=== PATIENT | female | born 1955 | race Caucasian/White ===

== ENCOUNTER 2016-07-02 10:32 | Day surgery (SDC) | payer BC ==
[~2016-07-02] VITALS: Ht 157.5 cm; Wt 94.2 kg
[2016-07-02] VITALS (16 sets, daily range): BP systolic 188–236; BP diastolic 88–109; PULSE 54; RESP 16; TEMP 98; O2SAT 95; Ht 157.5 cm; Wt 94.2 kg
[~2016-07-02 10:32] MED LIST: BUME2TAB18 PO; ERTAPENEM 1 G in NORMAL SALINE 100 ML IV ONE; EZET10TA PO; LEVO75TA10 PO; LIDOCAINE 1% (10mg/ml) 2ml SDV INJ ONE; MELO-273 PO; METF500T4 PO; NEBI20TA2 PO; POTA10CA37 PO; VERA120C2 PO
--- OUTSIDE RECORDS SUMMARY | 2016-07-02 10:37 | XMS REPORT ---
Author Author GENERATED, SYSTEM Organization Unknown Address Unknown Phone Unavailable Care Team Providers Care Physical Optics Teacher Name Role Phone MD ELGIN, LAURA RUIZ Unavailable Reason For Visit Chief Complaint PUNCTURE WOUND,OF FOOT Social History Functional Status Vital Signs Results Problems Encounter Diagnosis No relevant problems exist. Encounters Encounter Diagnosis No relevant problems exist. Plan of Care Procedures No relevant procedures performed. Immunizations No immunizations administered or ordered. Hospital Course Hospital Discharge Instructions Allergies, Adverse Reactions, Alerts * Latex Allergy has not been assessed. * IV Contrast Allergy has not been assessed. Medication Medication reconciliation has not been performed.
--- OUTSIDE RECORDS SUMMARY | 2016-07-02 10:37 | XMS REPORT | Summary of Care ---
Author Author Patrick Escobedo M.D. Unknown Address Unknown Phone Unavailable Care Team Providers Care Oil Well Engineer Name Role Phone Fanny Harrison, Mariangel Unavailable Unavailable Finn Harrison, Vaishnavi Unavailable Unavailable Elma Martin M.D. Unavailable Unavailable Elma Martin Unavailable Unavailable Unavailable Unavailable Functional Status Name Dates Details Functional status health issues are not documented Status: Name Dates Details Cognitive status health issues are not documented Status: Problems Name Dates Details Encounter for general health examination (V70.0, Z00.00) Status: Active Myopia (367.1, H52.10) Status: Active Presbyopia (367.4, H52.4) Status: Active Umbilical hernia (553.1, K42.9) Status: Active Polyarthritis (716.50, M13.0) Status: Active Wrist pain (719.43, M25.539) Status: Active Benign essential hypertension (401.1, I10) Status: Active Hypothyroidism (244.9, E03.9) Status: Active Hodgkin lymphoma (201.90, C81.90) Status: Active 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 * Start 06-Dec-2007 Active Bumetanide 2 MG Oral Tablet TAKE ONE TABLET BY MOUTH ONCE A DAY * Quantity: 30 Refills: 5 Elma Martin M.D. * Start Active Slow-Mag 535 (64 Mg) MG TBCR 1 po BID * Quantity: 180 Refills: 3 Finn HarrisonCirilo * Start Active Spironolactone 50 MG Oral Tablet TAKE 1 TABLET BY MOUTH DAILY * Quantity: 30 Refills: 6 Elma Martin M.D. * Start 02-Apr-2010 Active Bystolic 10 MG Oral Tablet TAKE TWO TABLETS BY MOUTH TWICE A DAY * Quantity: 120 Refills: 4 Elma Martin M.D. * Start 08-Apr-2010 Active Potassium Chloride ER 10 MEQ Oral Capsule Extended Release TAKE TWO CAPSULES BY MOUTH THREE TIMES A DAY * Quantity: 120 Refills: 6 Elma Martin M.D. * Start 19-Oct-2011 Active Zetia 10 MG Oral Tablet Take one tablet by mouth daily * Quantity: 30 Refills: 5 Elma Martin M.D. * Start 15-Jul-2012 Active Verapamil HCl ER 120 MG Oral Capsule Extended Release 24 Hour TAKE ONE CAPSULE BY MOUTH EVERY MORNING * Quantity: 30 Refills: 5 Elma Martin M.D. * Start 30-May-2013 Active Meloxicam 7.5 MG Oral Tablet TAKE 1 TABLET DAILY WITH FOOD. * Quantity: 30 Refills: 6 Elma Martin M.D. 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 Combined form of senile cataract of right eye (366.19, H25.811) Status: Active Hodgkin lymphoma (201.90, C81.90) Status: Active Hypothyroidism (244.9, E03.9) Status: Active Lateral epicondylitis of left elbow (726.32, M77.12) Status: Active Lymphedema (457.1, I89.0) Status: Active History of Acute upper respiratory infection (465.9, J06.9) Status: Resolved History of gastroenteritis (V12.79, Z87.19) Status: Resolved History of hypokalemia (V12.29, Z86.39) Status: Resolved Procedures Procedure Dates Details XRay WRIST-Left Ordered: 03-Dec-2015 Immunization Name Dates Details Influenza Lot #: [id number] on: 25-Jan-2009 Influenza on: 20-Mar-2010 Influenza on: 02-Feb-2011 Prevnar 13 Intramuscular Suspension Lot #: [id number] on: 30-Jan-2014 Influenza Lot #: [id number] on: 13-Feb-2014 Family History Name Dates Details Family history of Diabetes Mellitus (V18.0) Comments: Family History Status: Active Name Dates Details Family history of Stroke Syndrome (V17.1) Status: Active Name Dates Details Family history of Acute Myocardial Infarction (V17.3) Status: Active Social History Name Dates Details - Status: Name Dates Details Never smoker Vital Signs Date Test Result Details 03-Dec-2015 17:50 BP Systolic 130 mm[Hg] Status: Comments: Location: ; Position: BP Diastolic 80 mm[Hg] Status: Comments: Location: ; Position: Temperature 98.1 f Status: Comments: Method: Heart Rate 57 /min Status: Comments: Location: ; Physical Findings 99 Status: Comments: O2 Saturation Results Date Description Value Details Results not documented Plan of Care Name Dates Details Planned Observations Planned Goals not documented Interventions Provided Labs/Procedures/Imaging* XRay WRIST-Left; To be Done: 03 Dec 2015 Instructions Name Dates Details Instructions not documented Encounters Appointment; Elma Martin M.D. Encounter Diagnosis: Problem not documented On 03-Jun-2015 15:45 Appointment; John Coulter M.D. Encounter Diagnosis: Problem not documented On 22-Oct-2014 13:45 Appointment; Elma Martin M.D. Encounter Diagnosis: Problem not documented On 27-Feb-2014 15:00 Appointment; Elma Martin M.D. Encounter Diagnosis: Problem not documented On 13-Feb-2014 09:00 Appointment; Elma Martin M.D. Encounter Diagnosis: Problem not documented On 30-Jan-2014 12:15
--- OUTSIDE RECORDS SUMMARY | 2016-07-02 10:37 | XMS REPORT ---
Author Author GENERATED, SYSTEM Organization Unknown Address Unknown Phone Unavailable Care Team Providers Care Bead Machine Operator Name Role Phone MD ELGIN, LAURA RUIZ [...]
--- OUTSIDE RECORDS SUMMARY | 2016-07-02 10:37 | XMS REPORT | Summary of Care ---
Author Author Veronica Harrison, Elam Organization Unknown Address Unknown Phone Unavailable Care Team Providers Care Applications Tester Name Role Phone Finn Harrison, Vaishnavi Unavailable Unavailable Veronica Harrison, Elma Unavailable Unavailable Elma Martin PP Unavailable Unavailable Unavailable Functional Status Functional Status Health Issues* Name Dates Details Functional status health issues are not documented Status: Cognitive Status Health Issues* Name Dates Details Cognitive status health issues are not documented Status: Problems Name Dates Details Encounter for general health examination (V70.0, Z00.00) Status: Active Myopia (367.1, H52.10) Status: Active Presbyopia (367.4, H52.4) Status: Active Umbilical hernia (553.1, K42.9) Status: Active Hodgkin lymphoma (201.90, C81.90) Status: Active Combined form of senile cataract of right eye (366.19, H25.811) Status: Active 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, 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 Lymphedema (457.1, I89.0) Status: Active Benign essential hypertension (401.1, I10) Status: Active Hypothyroidism (244.9, E03.9) Status: Active Lateral epicondylitis of left elbow (726.32, M77.12) Status: Active Polyarthritis (716.50, M13.0) Status: Active Medications Name Dates Details Levothyroxine Sodium 75 MCG Oral Tablet Take one tablet by mouth daily Quantity: 30 Elma Martin M.D.* Started 06-Dec-2007 ActiveBumetanide 2 MG Oral Tablet TAKE ONE TABLET BY MOUTH ONCE A DAY * Quantity: 30 Refills: 5 Elma Martin M.D.* Started ActiveSlow-Mag 535 (64 Mg) MG TBCR 1 po BID * Quantity: 180 Refills: 3 Cirilo Briseno M.D.* Started ActiveSpironolactone 50 MG Oral Tablet TAKE 1 TABLET BY MOUTH DAILY * Quantity: 30 Refills: 6 Elma Martin M.D.* Started 02-Apr-2010 ActiveBystolic 10 MG Oral Tablet TAKE TWO TABLETS BY MOUTH TWICE A DAY * Quantity: 120 Refills: 4 Elma Mratin M.D.* Started 08-Apr-2010 ActivePotassium Chloride ER 10 MEQ Oral Capsule Extended Release TAKE TWO CAPSULES BY MOUTH THREE TIMES A DAY * Quantity: 120 Refills: 6 Elma Martin M.D.* Started 19-Oct-2011 ActiveZetia 10 MG Oral Tablet Take one tablet by mouth daily * Quantity: 30 Refills: 5 Elma Martin M.D.* Started 15-Jul-2012 ActiveVerapamil HCl ER 120 MG Oral Capsule Extended Release 24 Hour TAKE ONE CAPSULE BY MOUTH EVERY MORNING * Quantity: 30 Refills: 5 Elma Martin M.D.* Started 30-May-2013 Active Allergies and Adverse Reactions Name Dates Details DARINEL Inhibitors Reaction: Cough Status: Active HydrALAZINE HCl TABS Status: Active Sulfa Drugs Status: Active Past Medical History Name Dates Details History of Acute upper respiratory infection (465.9, J06.9) Status: Resolved History of gastroenteritis (V12.79, Z87.19) Status: Resolved History of hypokalemia (V12.29, Z86.39) Status: Resolved Procedures Procedure Dates Details Procedures not documented Immunization Name Dates Details Influenza Lot #: [id number] Administered on:25-Jan-2009 Influenza Administered on:20-Mar-2010 Influenza Administered on:02-Feb-2011 Prevnar 13 Intramuscular Suspension Lot #: [id number] Administered on:30-Jan-2014 Influenza Lot #: [id number] Administered on:13-Feb-2014 Family History Unknown Family Member* Name Dates Details Family history of Diabetes Mellitus (V18.0) Comments: Family History Status: Active Mother* Name Dates Details Family history of Stroke Syndrome (V17.1) Status: Active Father* Name Dates Details Family history of Acute Myocardial Infarction (V17.3) Status: Active Social History Name Dates Details Smoking Status* Never smoker Vital Signs Date Test Result Details 03-Jun-2015 16:25 BP Systolic 142 mm[Hg] Status: BP Diastolic 82 mm[Hg] Status: Heart Rate 62 /min Status: Respiration Rate 20 /min Status: Height 64 in Status: Weight 203.375 lb Status: O2 SAT 97 % Status: Body Mass Index Calculated 34.91 kg/m2 Status: Body Surface Area Calculated 1.97 m2 Status: Results Date Description Value Details Results not documented Plan of Care Planned Observations* Name Dates Details Planned Goals not documented Goal Instructions * Instructions not documented Encounters Appointment; Elma Martin Encounter Diagnosis: Problem not documented On 03-Jun-2015 15:45 Appointment; John Coulter Encounter Diagnosis: Problem not documented On 22-Oct-2014 13:45 Appointment; Elma Martin Encounter Diagnosis: Problem not documented On 27-Feb-2014 15:00 Appointment; Elma Martin Encounter Diagnosis: Problem not documented On 13-Feb-2014 09:00 Appointment; Elma Martin Encounter Diagnosis: Problem not documented On 30-Jan-2014 12:15 Appointment; Elma Martin Encounter Diagnosis: Problem not documented On 27-Oct-2013 15:15 Appointment; Elma Martin Encounter Diagnosis: Problem not documented On 01-Aug-2013 10:30
--- OUTSIDE RECORDS SUMMARY | 2016-07-02 10:37 | XMS REPORT ---
Author Author GENERATED, SYSTEM Organization Unknown Address Unknown Phone Unavailable Care Team Providers Care Poacher Wringer Operator Name Role Phone MD ELGIN, LAURA [...]
--- OUTSIDE RECORDS SUMMARY | 2016-07-02 10:37 | XMS REPORT | Summary of Care ---
Author Author Doug Harrison, Cirilo Organization Unknown Address Unknown Phone Unavailable Care Team Providers Care Wreath Inspector Name Role Phone Finn Harrisno, Vaishnavi Unavailable Unavailable Elma Martin M.D. Unavailable Unavailable Cirilo Camacho M.D. 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 Combined form of senile cataract of right eye (366.19, H25.811) Status: Active Lymphedema (457.1, I89.0) Status: Active Lateral epicondylitis of left elbow (726.32, M77.12) Status: Active Left wrist sprain (842.00, S63.502A) Status: Active Flu vaccine need (V04.81, Z23) Status: Active Never a smoker Status: Active Hypothyroidism (244.9, E03.9) Status: Active Screening mammogram, encounter for (V76.12, Z12.31) Status: Active Osteoporosis screening (V82.81, Z13.820) Status: Active Hypercholesterolemia (272.0, E78.00) Status: Active Cholelithiasis (574.20, K80.20) Status: Active Hypertension (401.9, I10) Status: Active Type 2 diabetes mellitus without complication (250.00, E11.9) Status: Active Medications Name Dates Details Levothyroxine Sodium 75 MCG Oral Tablet Take one tablet by mouth daily Quantity: 30 Cirilo Camacho M.D. Start 06-Dec-2007 Active Bumetanide 2 MG Oral Tablet TAKE ONE TABLET BY MOUTH ONCE A DAY * Quantity: 30 Refills: 5 Elma Martin M.D. * Start Active Slow-Mag 535 (64 Mg) MG TBCR 1 po BID * Quantity: 180 Refills: 3 Cirilo Briseno M.D. * Start Active Spironolactone 50 MG Oral Tablet TAKE 1 TABLET BY MOUTH DAILY * Quantity: 30 Refills: 6 Elma Martin M.D. * Start 02-Apr-2010 Active Bystolic 20 MG Oral Tablet Take one tablet by mouth twice a day * Quantity: 60 Refills: 5 Elma Martin M.D. * Start 27-Dec-2015 Active Potassium Chloride ER 10 MEQ Oral Capsule Extended Release TAKE TWO CAPSULES BY MOUTH THREE TIMES A DAY * Quantity: 120 Refills: 3 lEma Martin M.D. * Start 19-Oct-2011 Active Verapamil HCl ER 120 MG Oral Capsule Extended Release 24 Hour TAKE ONE CAPSULE BY MOUTH EVERY MORNING * Quantity: 30 Refills: 4 Cirilo Camacho M.D. Start 30-May-2013 Active Meloxicam 7.5 MG Oral Tablet TAKE 1 TABLET DAILY WITH FOOD. * Quantity: 30 Refills: 6 Elma Martin M.D. * Start 03-Jun-2015 Active Rosuvastatin Calcium 20 MG Oral Tablet TAKE 1 TABLET DAILY. * Quantity: 90 Refills: 3 Cirilo Camacho M.D. * Start 12-Jun-2016 Active MetFORMIN HCl - 500 MG Oral Tablet TAKE 1 TABLET TWICE DAILY WITH MEALS. * Quantity: 180 Refills: 3 Cirilo Camacho M.D. Start 12-Jun-2016 Active Allergies and Adverse Reactions Name Dates Details DARINEL Inhibitors (Allergy) Reaction: Cough Status: Active HydrALAZINE HCl TABS (Allergy) Status: Active Sulfa Drugs (Allergy) Status: Active Past Medical History Name Dates Details Combined form of senile cataract of left [...] gastroenteritis (V12.79, Z87.19) Status: Resolved History of Hodgkin's lymphoma (V10.72, Z85.71) Status: Resolved History of hypokalemia (V12.29, Z86.39) Status: Resolved Procedures Procedure Dates Details History of Appendectomy History of Laparotomy For Restaging Malignancy THYROID STIM. HORMONE 3602 Ordered: 12-Jun-2016 MAMMOGRAM-SCREENING Ordered: 10-Jun-2016 DEXA Ordered: 10-Jun-2016 Immunization Name Dates Details Influenza Lot #: [id number] on: 25-Jan-2009 Influenza on: 20-Mar-2010 Influenza on: 02-Feb-2011 Prevnar 13 Intramuscular Suspension Lot #: [id number] on: 30-Jan-2014 Influenza Lot #: [id number] on: 13-Feb-2014 Fluzone Quadrivalent 0.5 ML Intramuscular Suspension Lot #: [id number] on: 05-Dec-2015 Pneumovax 23 25 MCG/0.5ML Injection Injectable Lot #: [id number] on: 10-Jun-2016 Adacel 5-2-15.5 LF-MCG/0.5 Intramuscular Suspension Lot #: [id number] on: 10-Jun-2016 Family History Name Dates Details Family history of Diabetes Mellitus (V18.0) Comments: Family History Status: Active Name Dates Details Family history of Stroke Syndrome (V17.1) Status: Active Name Dates Details Family history of Acute Myocardial Infarction (V17.3) Status: Active Social History Name Dates Details - Status: Name Dates Details Never smoker Vital Signs Date Test Result Details 12-Jun-2016 13:11 BP Systolic 134 mm[Hg] Status: Comments: Location: ; Position: BP Diastolic 84 mm[Hg] Status: Comments: Location: ; Position: Heart Rate 67 /min Status: Comments: Location: ; Physical Findings 96 Status: Comments: O2 Saturation 10-Jun-2016 10:30 BP Systolic 144 mm[Hg] Status: Comments: Location: ; Position: BP Diastolic 92 mm[Hg] Status: Comments: Location: ; Position: Heart Rate 63 /min Status: Comments: Location: ; Height 63 in Status: Weight 209 lb Status: Physical Findings 98 Status: Comments: O2 Saturation Body Mass Index Calculated 37.02 kg/m2 Status: Body Surface Area Calculated 1.97 m2 Status: Results Date Description Value Details 10-Jun-2016 12:34 CBC w/ Auto Diff 7150 Comments: Fastin hours WBC 10.2 K/uL Range: 4.5-11.0 RBC 5.35 mil/uL (Above high threshold) Range: 3.60-5.00 HGB 15.8 g/dL Range: 12.0-16.0 HCT 47.5 % Range: 36.0-48.0 MCV 88.8 fL Range: 80.0-99.0 MCH 29.5 pg Range: 27.3-32.5 MCHC 33.2 % Range: 32.0-36.0 RDW 15.2 % (Above high threshold) Range: 11.6-14.8 PLATELETS 417 K/uL (Above high threshold) Range: 150-400 MPV 7.9 fL Range: 6.0-11.0 %NEUTRO 64.1 % Range: 37.0-80.0 %LYMPHS 25.4 % Range: 13.0-50.0 %MONO 4.8 % Range: 0.0-12.0 %EOS 3.4 % Range: 0.0-7.0 %BASO 0.5 % Range: 0.0-2.5 %ELYSSA 1.9 % Range: 0.0-5.0 NEUTRO 6.6 K/uL Range: 2.0-6.9 LYMPHS 2.6 K/uL Range: 0.6-3.4 MONOS 0.5 K/uL Range: 0.0-0.9 EOS 0.3 K/uL Range: 0.0-0.7 BASO 0.1 K/uL Range: 0.0-0.2 15:00 BASIC METABOLIC PROFILE 1210 Comments: Fastin hours SODIUM 134 mmol/L Range: 133-144 POTASSIUM 3.6 mmol/L Range: 3.5-5.1 CHLORIDE 101 mmol/L Range: 98-110 CARBON DIOXIDE 25.7 mmol/L Range: 23.0-33.0 ANION GAP 7 mmol/L Range: 6-16 BUN 14 mg/dL Range: 7-18 CREATININE, SERUM 0.83 mg/dL Range: 0.55-1.02 EST GFR, >60 ml/min Range: >60 EST GFR, NON-AFR DJIBOUTIAN >60 ml/min Range: >60 Comments: EST GFR is reported in ml/min per 1.73 m2 of body surface area. ----- BUN:CREATININE RATIO 17 GLUCOSE 167 mg/dL (Above high threshold) Range: 70-100 CALCIUM 8.5 mg/dL Range: 8.5-10.1 15:00 LIPID PROFILE 1184 Comments: Fastin hours CHOLESTEROL 244 mg/dL (Above high threshold) Range: <200 TRIGLYCERIDES 107 mg/dL Range: 30-200 HDL Cholesterol 43 mg/dL Range: >39 NON HDL CHOLESTEROL 201 CARDIAC RSK FACTOR 5.7 units (Above high threshold) Range: 4.4-5.0 LDL - CALCULATED 180 mg/dL (Above high threshold) Range: 0-130 15:00 AST 1180 Comments: Fastin hours AST 20 U/L Range: 8-35 15:38 HEMOGLOBIN A1C 3507 Comments: Fastin hours Hemoglobin A1C 8.2 % ESTIMATED AVG. GLUCOSE 189 11-Jun-2016 09:50 ULTRASOUND GALL BLADDER Comments: Exam Date: 06/11/2016 08: 54Dictation Date: 06/11/2016 09:50 XS GALL BLADDER Plan of Care Name Dates Details Planned Observations Planned Goals not documented Planned Encounters Appointment; Provider: Cirilo Camacho M.D. On 13:00 Appointment; Provider: Schedule Radiology On 14:30 Appointment; Provider: Schedule Radiology On 14:20 Interventions Provided Medication Changes* MetFORMIN HCl - 500 MG Oral Tablet - Start * Rosuvastatin Calcium 20 MG Oral Tablet - Start * Zetia 10 MG Oral Tablet - Stop Labs/Procedures/Imaging* THYROID STIM. HORMONE 3602; To be Done: 12 Jun 2016 Instructions Name Dates Details Instructions not documented Encounters Appointment; Cirilo Camacho M.D. Encounter Diagnosis: Problem not documented On 10-Jun-2016 10:45 Appointment; Precious Villanueva Encounter Diagnosis: Problem not documented On 05-Dec-2015 12:45 Appointment; Patrick Escobedo M.D. Encounter Diagnosis: Problem not documented On 03-Dec-2015 17:34 Appointment; Elma Martin M.D. Encounter Diagnosis: Problem not documented On 03-Jun-2015 15:45 Appointment; John Coulter M.D. Encounter Diagnosis: Problem not documented On 22-Oct-2014 13:45
--- OUTSIDE RECORDS SUMMARY | 2016-07-02 10:38 | XMS REPORT | Summary of Care ---
Author Author Veronica Harrison, Elma Organization Unknown Address Unknown Phone Unavailable Care Team Providers Care At Risk Paraprofessional Name Role Phone Finn Harrison, Vaishnavi Unavailable Unavailable Elma Martin M.D. Unavailable Unavailable Elma Martin PP Unavailable Unavailable Unavailable Functional Status Functional Status Health Issues* Name Dates Details Functional status health issues are not documented Status: Cognitive Status Health Issues* Name Dates Details Cognitive status health issues are not documented Status: Problems Name Dates Details Lower back pain (724.2, M54.5) Status: Active Cough (786.2, R05) Status: Active Hypothyroidism (244.9, E03.9) Status: Active Chest pain (786.50, R07.9) Status: Active Benign essential hypertension (401.1, I10) Status: Active Encounter for general health examination (V70.0, Z00.00) Status: Active Myopia (367.1, H52.10) Status: Active Presbyopia (367.4, H52.4) Status: Active Nonspecific abnormal finding (796.9, R68.89) Status: Active Hyperlipidemia (272.4, E78.5) Status: Active Edema (782.3, R60.9) Status: Active Eye strain, bilateral (368.13, H53.143) Status: Active Bronchitis, acute (466.0, J20.9) Status: Active Wheezing (786.07, R06.2) Status: Active Insomnia, idiopathic (307.42, F51.01) Status: Active Umbilical hernia (553.1, K42.9) Status: Active Left leg swelling (729.81, M79.89) Status: Active Hodgkin lymphoma (201.90, C81.90) Status: Active Cellulitis of foot, left (682.7, L03.116) Status: Active Medications Name Dates Details Bumetanide 2 MG Oral Tablet TAKE 1 TABLET DAILY. Quantity: 30 Elma Martin M.D.* Started ActiveSpironolactone 50 MG Oral Tablet TAKE 1 TABLET BY MOUTH DAILY * Quantity: 30 Refills: 6 Elma Martin M.D.* Started 02-Apr-2010 ActivePotassium Chloride ER 10 MEQ Oral Capsule Extended Release TAKE TWO CAPSULES BY MOUTH THREE TIMES A DAY * Quantity: 120 Refills: 6 Elma Martin M.D.* Started 19-Oct-2011 ActiveZetia 10 MG Oral Tablet TAKE ONE TABLET BY MOUTH ONCE A DAY * Quantity: 30 Refills: 6 Elma Martin M.D.* Started 15-Jul-2012 ActiveVerapamil HCl ER 120 MG Oral Capsule Extended Release 24 Hour TAKE ONE CAPSULE BY MOUTH EVERY MORNING * Quantity: 30 Refills: 2 Elma Martin M.D.* Started 30-May-2013 ActiveSlow-Mag 535 (64 Mg) MG TBCR 1 po BID * Quantity: 180 Refills: 3 Cirilo Briseno M.D.* Started ActiveBystolic 20 MG Oral Tablet Take one tablet by mouth twice a day * Quantity: 60 Refills: 5 Elma Martin M.D.* Started 01-Aug-2010 ActiveFolic Acid 800 MCG Oral Tablet TAKE 1 TABLET DAILY DIRECTED. * Refills: 0 * Started 15-Apr-2010 ActiveLevothyroxine Sodium 75 MCG Oral Tablet take one tablet by mouth every day * Quantity: 90 Refills: 2 Elma Martin M.D.* Started 06-Dec-2007 Active Allergies and Adverse Reactions Name Dates Details DARINEL Inhibitors Reaction: Cough Status: Active HydrALAZINE HCl TABS Status: Active Sulfa Drugs Status: Active Past Medical History Name Dates Details History of Acute upper respiratory infection (465.9, J06.9) Status: Resolved History of gastroenteritis (V12.79, Z87.19) Status: Resolved History of hypokalemia (V12.29, Z86.39) Status: Resolved Procedures Procedure Dates Details Comprehensive Metabolic Panel 1212 Ordered:10-Apr-2014 CBC w/ Auto Diff 7150 Ordered:10-Apr-2014 LIPID PROFILE 1184 Ordered:10-Apr-2014 THYROID STIM. HORMONE 3602 Ordered:10-Apr-2014 Immunization Name Dates Details Influenza Lot #: [id number] Administered on:25-Jan-2009 Influenza Administered on:20-Mar-2010 Influenza Administered on:02-Feb-2011 Prevnar 13 Intramuscular Suspension Lot #: [id number] Administered on:30-Jan-2014 Influenza Lot #: [id number] Administered on:13-Feb-2014 Family History Unknown Family Member* Name Dates Details Family history of Diabetes Mellitus (V18.0) Comments: Family History Status: Active Mother* Name Dates Details Family history of Stroke Syndrome (V17.1) Status: Active Father* Name Dates Details Family history of Acute Myocardial Infarction (V17.3) Status: Active Social History Name Dates Details Smoking Status* Never smoker Vital Signs Date Test Result Details No Known Vitals to report Results Date Description Value Details Results not documented Plan of Care Planned Observations* Name Dates Details Planned Goals not documented Goal Planned Encounters* Appointment; Provider: Elma Martin On 18-Apr-2014 11:15 Instructions * Instructions not documented Encounters Appointment; Elma Martin Encounter Diagnosis: Problem not documented On 27-Feb-2014 15:00 Appointment; Elma Martin Encounter Diagnosis: Problem not documented On 13-Feb-2014 09:00 Appointment; Elma Martin Encounter Diagnosis: Problem not documented On 30-Jan-2014 12:15 Appointment; Elma Martin Encounter Diagnosis: Problem not documented On 27-Oct-2013 15:15 Appointment; Elma Martin Encounter Diagnosis: Problem not documented On 01-Aug-2013 10:30 Appointment; Elma Martin Encounter Diagnosis: Problem not documented On 30-May-2013 16:00 Appointment; Adelfo Ruiz Encounter Diagnosis: Problem not documented On 29-May-2013 13:20 Appointment; Elma Martin Encounter Diagnosis: Problem not documented On 22-May-2013 09:15 Appointment; Elma Martin Encounter Diagnosis: Problem not documented On 21-Feb-2013 15:30 Appointment; Elma Martin Encounter Diagnosis: Problem not documented On 20-Jan-2013 15:15 Appointment; Elma Martin Encounter Diagnosis: Problem not documented On 15-Jul-2012 15:45 Appointment; Preston Cardona Encounter Diagnosis: Problem not documented On 24-May-2012 15:30 Appointment; Preston Cardona Encounter Diagnosis: Problem not documented On 10-May-2012 15:45
--- OUTSIDE RECORDS SUMMARY | 2016-07-02 10:38 | XMS REPORT | Summary of Care ---
Author Author Veronica Harrison, Elma Organization Unknown Address Unknown Phone Unavailable Care Team Providers Care Pegger Dobby Looms Name Role Phone Finn Harrison, Vaishnavi Unavailable [...] L03.116) Status: Active Medications Name Dates Details Levothyroxine Sodium 75 MCG Oral Tablet take one tablet by mouth every day Quantity: 90 Elma Martin M.D.* Started 06-Dec-2007 ActiveBumetanide 2 MG Oral Tablet TAKE 1 TABLET DAILY. * Quantity: 30 Refills: 6 Elma Martin M.D.* Started ActiveSlow-Mag 535 (64 Mg) MG TBCR 1 po BID * Quantity: 180 Refills: 3 Cirilo Briseno M.D.* Started ActiveSpironolactone 50 MG Oral Tablet TAKE 1 TABLET BY MOUTH DAILY * Quantity: 30 Refills: 6 Elma Martin M.D.* Started 02-Apr-2010 ActiveFolic Acid 800 MCG Oral Tablet TAKE 1 TABLET DAILY DIRECTED. * Refills: 0 * Started 15-Apr-2010 ActiveBystolic 20 MG Oral Tablet Take one tablet by mouth twice a day * Quantity: 60 Refills: 5 Elma Martin M.D.* Started 01-Aug-2010 ActivePotassium Chloride ER 10 MEQ Oral Capsule [...] Refills: 2 Elma Martin M.D.* Started 30-May-2013 Active Allergies [...] Immunization Name Dates Details Influenza Lot #: [id number] Administered on:25-Jan-2009 Influenza Administered on:20-Mar-2010 Influenza Administered on:02-Feb-2011 Prevnar 13 Intramuscular Suspension Lot #: [id number] Administered on:30-Jan-2014 Influenza Lot #: [id number] Administered on:13-Feb-2014 Family History Unknown Family Member* Name Dates Details Family history of Diabetes Mellitus (V18.0) Comments: Family History Status: Active Mother* Name Dates Details Family history of Stroke Syndrome (V17.1) Status: Active Father* Name Dates Details Family history of Acute Myocardial Infarction (V17.3) Status: Active Social History Name Dates Details Smoking Status* Never smoker Vital Signs Date Test Result Details 27-Feb-2014 15:29 BP Systolic 122 mm[Hg] Status: BP Diastolic 70 mm[Hg] Status: Heart Rate 64 /min Status: Respiration Rate 20 /min Status: O2 SAT 97 % Status: Results Date Description Value Details 27-Feb-2014 16:54 XRay FOOT-Left Comments: Exam Date: 16: 10Dictation Date: 16:54 X FOOT COMP (MIN 3V) LT (Better) Plan of Care Planned Observations* Name Dates [...] Problem not documented On 15-Jul-2012 15:45 Appointment; Cardona, T. K. Encounter Diagnosis: Problem not documented On 24-May-2012 15:30 Appointment; Preston Cardona Encounter Diagnosis: Problem not documented On 10-May-2012 15:45
--- OUTSIDE RECORDS SUMMARY | 2016-07-02 10:38 | XMS REPORT | Summary of Care ---
Author Author Veronica Harrison, Elma Organization Unknown Address Unknown Phone Unavailable Care Team Providers Care Assistant Plant Control Operator Name Role Phone Finn Harrison, Vaishnavi Unavailable [...] DAILY. Quantity: 30 Elma Martin M.D.* Started ActiveBystolic 10 MG Oral Tablet TAKE TWO TABLETS BY MOUTH TWICE A DAY * Quantity: 120 Refills: 5 Elma Martin M.D.* Started 08-Apr-2010 ActiveBystolic 20 MG Oral Tablet Take one tablet by mouth twice a day * Quantity: 60 Refills: 5 Elma Martin M.D.* Started 01-Aug-2010 ActiveZetia 10 MG Oral Tablet TAKE ONE TABLET BY MOUTH ONCE A DAY * Quantity: 30 Refills: 6 Elma Martin M.D.* Started 15-Jul-2012 ActivePotassium Chloride ER 10 MEQ Oral Capsule Extended Release TAKE TWO CAPSULES BY MOUTH THREE TIMES A DAY * Quantity: 120 Refills: 6 Elma Martin M.D.* Started 19-Oct-2011 ActiveVerapamil HCl ER 120 MG Oral Capsule Extended Release 24 Hour TAKE ONE CAPSULE BY MOUTH EVERY MORNING * Quantity: 30 Refills: 5 Elma Martin M.D.* Started 30-May-2013 ActiveLevothyroxine Sodium 75 MCG Oral Tablet take one tablet by mouth every day * Quantity: 90 Refills: 2 Elma Martin M.D.* Started 06-Dec-2007 ActiveSpironolactone 50 MG Oral Tablet TAKE 1 TABLET BY MOUTH DAILY * Quantity: 30 Refills: 6 Elma Martin M.D.* Started 02-Apr-2010 ActiveFolic Acid 800 MCG Oral Tablet TAKE 1 TABLET DAILY DIRECTED. * Refills: 0 * Started 15-Apr-2010 ActiveSlow-Mag 535 (64 Mg) MG TBCR 1 po BID * Quantity: 180 Refills: 3 Cirilo Briseno M.D.* Started Active Allergies and Adverse Reactions Name Dates [...] Immunization Name Dates Details Influenza Lot #: [id number] Administered on:25-Jan-2009 Influenza Administered on:20-Mar-2010 Influenza Administered on:02-Feb-2011 Prevnar 13 Intramuscular Suspension Lot #: [id number] Administered on:30-Jan-2014 Influenza Lot #: [id number] Administered on:13-Feb-2014 Family History Unknown Family Member* [...]
--- OUTSIDE RECORDS SUMMARY | 2016-07-02 10:38 | XMS REPORT ---
Author Author GENERATED, SYSTEM Organization Unknown Address Unknown Phone Unavailable Care Team Providers Care Molder Floor Name Role Phone MD ELGIN, LAURA RUIZ [...]
--- OUTSIDE RECORDS SUMMARY | 2016-07-02 10:38 | XMS REPORT | Summary of Care ---
Author Author Provider, Outside Organization Unknown Address Unknown Phone Unavailable Care Team Providers Care Patient Escort Name Role Phone Finn Harrison, Vaishnavi Unavailable Unavailable Veronica Harrison, Elma Unavailable Unavailable Cirilo Camacho M.D. Unavailable Unavailable [...] Status: Active Never a smoker Status: Active Hypertension (401.9, I10) Status: Active Hypothyroidism (244.9, E03.9) Status: Active Cholelithiasis (574.20, K80.20) Status: Active Type 2 diabetes mellitus without complication (250.00, E11.9) Status: Active Screening mammogram, encounter for (V76.12, Z12.31) Status: Active Osteoporosis screening (V82.81, Z13.820) Status: Active Medications Name Dates Details Levothyroxine Sodium 75 MCG Oral Tablet Take one tablet by mouth daily Quantity: 30 Cirilo Camacho M.D. * Start 06-Dec-2007 Active Bumetanide 2 [...] A DAY * Quantity: 120 Refills: 3 Elma Martin M.D. * Start 19-Oct-2011 Active Zetia 10 MG Oral Tablet Take one tablet by mouth daily * Quantity: 30 Refills: 3 Elma Martin M.D. * Start 15-Jul-2012 Active Verapamil HCl ER 120 MG Oral Capsule Extended Release 24 Hour TAKE ONE CAPSULE BY MOUTH EVERY MORNING * Quantity: 30 Refills: 4 Cirilo Camacho M.D. * Start 30-May-2013 Active Meloxicam 7.5 [...] Appendectomy History of Laparotomy For Restaging Malignancy BASIC METABOLIC PROFILE 1210 Ordered: 10-Jun-2016 CBC w/ Auto Diff 7150 Ordered: 10-Jun-2016 LIPID PROFILE 1184 Ordered: 10-Jun-2016 AST 1180 Ordered: 10-Jun-2016 HEMOGLOBIN A1C 3507 Ordered: 10-Jun-2016 MAMMOGRAM-SCREENING Ordered: 10-Jun-2016 DEXA Ordered: 10-Jun-2016 ULTRASOUND GALL BLADDER Ordered: 10-Jun-2016 Immunization Name Dates Details Influenza Lot #: [id number] on: 25-Jan-2009 Influenza on: 20-Mar-2010 Influenza on: 02-Feb-2011 Prevnar 13 Intramuscular Suspension Lot #: [id number] on: 30-Jan-2014 Influenza Lot #: [id number] on: 13-Feb-2014 Fluzone Quadrivalent 0.5 ML Intramuscular Suspension Lot #: [id number] on: 05-Dec-2015 Pneumovax 23 25 MCG/0.5ML Injection Injectable Lot #: [id number] on: 10-Jun-2016 Adacel 5-2-15.5 LF-MCG/0.5 Intramuscular Suspension Lot #: [id number] on: 10-Jun-2016 Family History Name Dates Details Family history of Diabetes Mellitus (V18.0) Comments: Family History Status: Active Name Dates Details Family history of Stroke Syndrome (V17.1) Status: Active Name Dates Details Family history of Acute Myocardial Infarction (V17.3) Status: Active Social History Name Dates Details - Status: Name Dates Details Never smoker Vital Signs Date Test Result Details 10-Jun-2016 10:30 BP Systolic 144 mm[Hg] Status: [...] Details Planned Observations Planned Goals not documented Instructions Name Dates Details Instructions not documented [...]
--- OUTSIDE RECORDS SUMMARY | 2016-07-02 10:38 | XMS REPORT | Summary of Care ---
Author Author Veronica Harrison, Elma Organization Unknown Address Unknown Phone Unavailable Care Team Providers Care Airdrop Systems Technician Name Role Phone Finn Harrison, Vaishnavi Unavailable [...] Immunization Name Dates Details Influenza Lot #: [id number] Administered on:25-Jan-2009 Influenza Administered on:20-Mar-2010 Influenza Administered on:02-Feb-2011 Prevnar 13 Intramuscular Suspension Lot #: [id number] Administered on:30-Jan-2014 Influenza Lot #: [id number] Administered on:13-Feb-2014 Family History Unknown Family Member* [...]
--- OUTSIDE RECORDS SUMMARY | 2016-07-02 10:38 | XMS REPORT | Summary of Care ---
Author Author Doug Harrison, Cirilo Organization Unknown Address Unknown Phone Unavailable Care Team Providers Care Fish Egg Packer Name Role Phone Finn Harrison, Vaishnavi Unavailable [...] lEma Martin M.D. * Start 19-Oct-2011 Active Zetia [...] Malignancy BASIC METABOLIC PROFILE 1210 Ordered: 10-Jun-2016 LIPID PROFILE 1184 Ordered: 10-Jun-2016 AST 1180 Ordered: 10-Jun-2016 HEMOGLOBIN A1C 3507 Ordered: 10-Jun-2016 MAMMOGRAM-SCREENING Ordered: 10-Jun-2016 DEXA Ordered: 10-Jun-2016 ULTRASOUND GALL BLADDER Ordered: 10-Jun-2016 Immunization Name Dates Details Influenza Lot #: [id number] on: 25-Jan-2009 Influenza on: 20-Mar-2010 Influenza on: 02-Feb-2011 Prevnar 13 Intramuscular Suspension Lot #: [id number] on: 30-Jan-2014 Influenza Lot #: [id number] on: 13-Feb-2014 Fluzone Quadrivalent 0.5 ML Intramuscular Suspension Lot #: [id number] on: 05-Dec-2015 Pneumovax 23 25 MCG/0.5ML Injection Injectable Lot #: [id number] on: 10-Jun-2016 Adacel 5-2-15.5 LF-MCG/0.5 Intramuscular Suspension Lot #: [id number] on: 10-Jun-2016 Family History Name Dates Details [...] Range: 0.0-0.7 BASO 0.1 K/uL Range: 0.0-0.2 Plan of Care Name Dates Details Planned Observations MAMMOGRAM-SCREENING On 24-Jun-2016 Intent DEXA On 24-Jun-2016 Intent Planned Goals not documented Interventions Provided Medication Changes* Levothyroxine Sodium 75 MCG Oral Tablet - Renew * Verapamil HCl ER 120 MG Oral Capsule Extended Release 24 Hour - Renew Labs/Procedures/Imaging* AST 1180; To be Done: 10 Jun 2016 * BASIC METABOLIC PROFILE 1210; To be Done: 10 Jun 2016 * HEMOGLOBIN A1C 3507; To be Done: 10 Jun 2016 * LIPID PROFILE 1184; To be Done: 10 Jun 2016 * ULTRASOUND GALL BLADDER; To be Done: 10 Jun 2016 * CBC w/ Auto Diff 7150; Done: Jun 10 2016 12:23PM Medications/Immunizations Administered* Adacel 5-2-15.5 LF-MCG/0.5 Intramuscular Suspension; Done: 10 Jun 2016 * Pneumovax 23 25 MCG/0.5ML Injection Injectable; Done: 10 Jun 2016 Instructions Name Dates Details Instructions not documented Encounters Appointment; Precious Villanueva Encounter Diagnosis: Problem not documented On 05-Dec-2015 12:45 Appointment; Patrick Escobedo M.D. Encounter Diagnosis: Problem not documented On 03-Dec-2015 17:34 Appointment; Elma Martin M.D. Encounter Diagnosis: Problem not documented On 03-Jun-2015 15:45 Appointment; John Coulter M.D. Encounter Diagnosis: Problem not documented On 22-Oct-2014 13:45
[2016-07-02 11:18] LABS: BASOPHILS # (AUTO) 0.1 T/MM3 (0-0.2); BASOPHILS % (AUTO) 0.5 % (0-2); EOSINOPHILS # (AUTO) 0.4 T/MM3 (0-0.5); EOSINOPHILS % (AUTO) 3.9 % (0-4); HCT - HEMATOCRIT 45.7 % (36-46); HGB - HEMOGLOBIN 14.9 GM/DL (12-16); IMMATURE GRANULOCYTE # (AUTO) 0.02 T/MM3 (0.00-0.03); IMMATURE GRANULOCYTE % (AUTO) 0.2 % (0.0-0.5); LYMPHOCYTES # (AUTO) 3.8 T/MM3 (1-4.8); LYMPHOCYTES % (AUTO) 35.1 % (23-45); MEAN CORPUSCULAR HGB 27.8 UUG (26-34); MEAN CORPUSCULAR HGB CONC(MCHC 32.6 GM/DL (31-37); MEAN CORPUSCULAR VOLUME 85.3 UM3 (80-100); MEAN PLATELET VOLUME 10.5 UM3 (9.4-12.4); MONOCYTES # (AUTO) 0.9 T/MM3 (0-0.8); MONOCYTES % (AUTO) 8.1 % (0-9.0); NEUTROPHILS #(AUTO)-ABSOLUTE 5.6 T/MM3 (1.8-7.7); NEUTROPHILS % (AUTO) 52.2 % (33-66); RED BLOOD COUNT 5.36 M/MM3 (4.00-5.20); WBC - WHITE BLOOD COUNT 10.7 T/MM3 (4.5-11.0)
[2016-07-02 11:28] LABS: ALBUMIN 4.6 G/DL (3.5-5.0); ALBUMIN/GLOBULIN RATIO 1.2 RATIO (1.1-2.2); ALKALINE PHOSPHATASE 115 U/L (38-126); ALT (SGPT) 33 U/L (9-52); ANION GAP 15 MEQ/L (5-15); AST (SGOT) 28 U/L (14-36); BUN/CREATININE RATIO 29 RATIO (6-26); CHLORIDE 104 MEQ/L (98-107); CO2 - CARBON DIOXIDE 28 MEQ/L (22-30); CREATININE 0.7 MG/DL (0.7-1.2); GLOMERULAR FILTRATION RATE 85; GLUCOSE 153 MG/DL (65-110); POTASSIUM 3.8 MEQ/L (3.6-5); SODIUM 147 MEQ/L (134-144); TOTAL PROTEIN 8.5 G/DL (6.3-8.2)
[2016-07-02] MEDS: LR 1,000 ML IV PRN ×2 (12:03→18:29)
--- NOTE | 2016-07-02 12:15 | NUR ---
Blood Pressure/Notification Pt remains hypertensive. See vitals. Reported to Bolivar Cobos CRNA. No new orders received at this time, except to continue monitoring blood pressure.
--- NOTE | 2016-07-02 12:36 | ANESPREOP ---
Anesthesia Record Date and Time DATE: 07/02/16 TIME: 12:32 Pre-Op Diagnosis [employer] UMB. HERNIA Proposed Surgical Procedure ROBOTIC LAP ANDREY, HERNIA REPAIR Allergies: Coded Allergies: Sulfa (Sulfonamide Antibiotics) (Verified Allergy, Unknown, 07/01/16) hydralazine (Verified Allergy, Unknown, AT. FIB, 07/01/16) Uncoded Allergies: WHEAT FLOUR (Allergy, Unknown, COUGHING, 07/01/16) Ht/Wt/BMI Height: 5 ' 2.00 " Weight: 94.200 kg BMI: 38.0 kg/m2 Vital Signs Date Time Temp Pulse Resp B/P Pulse Ox O2 Delivery O2 Flow Rate FiO2 07/02/16 12:11 225/103 07/02/16 10:45 98.0 54 16 95 Room Air Medications Inpatient Medications Current Medications Medications (Trade) Dose Ordered Sig/Fawad Start Time Stop Time Status Last Admin Dose Admin Lactated Ringer's (Lactated Ringers) 1,000 ml @ 30 mls/hr Q24H PRN 07/02/16 07:00 07/02/16 12:03 30 MLS/HR Bumetanide (Bumetanide) 2 Mg Tablet, 1 TAB PO DAILY PRN for PRN ORDERS, ( Reported) Last Taken: on Unknown Date & Time Ezetimibe (Zetia) 10 Mg Tablet, 1 TAB PO HS, (Reported) Last Taken: on 07/01/16 2200 Levothyroxine Sodium (Levothyroxine Sodium) 75 Mcg Tablet, 1 TAB PO DAILY, (Reported) Last Taken: on 07/02/16 0830 Meloxicam (Meloxicam) 7.5 Mg Tablet, 1 TAB PO DAILY, (Reported) Last Taken: on 06/25/16 Metformin HCl (Metformin HCl) 500 Mg Tablet, 1 TAB PO PRN, (Reported) Last Taken: on 07/01/16 2100 Nebivolol HCl (Bystolic) 20 Mg Tablet, 1 TAB PO BID, (Reported) Last Taken: on 07/02/16 0830 Potassium Chloride (Potassium Chloride) 10 Meq Capsule.er, 2 CAP PO BID, (Reported) Last Taken: on Unknown Date & Time Verapamil HCl (Verapamil ER) 120 Mg Cap24h.pel, 1 TAB PO NOON, (Reported) Last Taken: on 07/01/16 1500 Currently on Beta Carito: Yes Beta Carito Last Taken: bystolic 07/02/16 at 0830 Medical/Surgical History Anesthesia PMH: Reports: *Diabetes, *Hypertension (TAKES MEDS ), Cancer ( HODGKINS LYMPHOMA), Obesity, Thyroid Disease (HYPOTHYROIDISM), Denies: Anesthesia Reactions (NO AIRWAY ISSUES ), Arthritis, Blood Transfusion Reac, Clotting Problems, Glaucoma, Malignant Hyperthermia, Sleep Apnea Smoking Status: Former smoker Has pt. smoked today?: No Use Chewing Tobacco?: No Second Hand Exposure: No Substance Use Type: does not use Substance last used: unknown Alcohol Intake: none Last Drink: unknown HX of Last Menstrual Period: AGE 43 Past Surgical History Orthopedic Surgeries: Abdominal Surgeries: Yes - SPLEEN REMOVED, APPY Genitourinary Surgeries: Cardiac Surgeries: Endocrine Surgeries: Reproductive Surgeries: Neurological Surgeries: Ear Surgeries: Nose Surgeries: Throat Surgeries: Other Surgeries: Yes - BIOPSY-UNDERARM Anesthesia Adverse Reactions: FOUND nausea and vomiting Pertinent Findings Laboratory Tests 07/02/16 11:13 EKG Rhythm: Sinus Rhythm Physical Exam Respiratory: Bilat breath sounds equal, Lungs clear Cardiovascular: FOUND Regular rate, rhythm, FOUND No murmur Airway Assessment Mallampati Score: II TMD: 3 Fingerbreadths Neck Extension: Fair ASA: 3 Plan Anesthesia Plan: GETA Discussion Discussed risks/options/alternatives of anesthesia and questions answered. Patient consents. Nursing pain assessment noted. Present: Spouse Attestation Statement Prior to the delivery of any anesthetic medication, I examined the patient, developed the plan, obtained the patient's consent and discussed the risk and benefits of the procedure with the patient/guardian. MANSI CABRALES CRNA Jul 02, 2016 12:36
--- NOTE | 2016-07-02 12:39 | NUR ---
Blood Pressure Pt remains hypertensive. Bolivar Cobos CRNA here visiting with pt. Direction to remain monitoring pts blood pressure. Order was given for Versed 2mg. Bolivar verbalized to this RN to try to hold off on administration of Versed and monitor blood pressures due to unknown surgery start time.
[2016-07-02] MEDS ORDERED: MIDAZOLAM 2mg/2ml INJECTION IV ONE (12:45)
[2016-07-02] MEDS ORDERED: BUPIVACAINE 0.25%/EPI 1:200,000 30ml SDV ONE (15:02)
[2016-07-02] MEDS ORDERED: SALINE FLUSH 10ml SYRINGE ONE (15:03)
[2016-07-02] MEDS ORDERED: FENTANYL 250mcg/5ml INJECTION ONE (16:01)
[2016-07-02] MEDS ORDERED: PROPOFOL 200mg 20 ML IV ONE (16:02)
[2016-07-02] MEDS ORDERED: VECURONIUM 10mg/10ml INJECTION IV ONE (16:02)
--- NOTE | 2016-07-02 19:10 | NUR ---
Surgery Postponed Dr Mckeon here visiting with pt. Verbal order to lock off pts IV from fluids and send pt home with peripheral IV in place received, along with direction to reschedule today's surgery for tomorrow, July 03, 2016.
--- NOTE | 2016-07-02 19:20 | NUR ---
Procedure Status Surgery rescheduled for tomorrow afternoon at 3:00 p.m. IV locked and secured in place with coban. Pt will be dismissed home. Pt verbalizes understanding of plan of care.
[2016-07-03] MEDS ORDERED: IBUP-1724 PO (14:19)
== END 2016-07-02 20:00 | disposition home or self-care (01) ==
LOC: SCU 10:32 → SRG 10:32 → SCU 20:00
PROVIDERS: ATTEND Surgery
DX: K80.20 Calculus of gallbladder without cholecystitis without obstruction (principal); K43.2 Incisional hernia without obstruction or gangrene
CPT/HCPCS: 36415; 80053; 82948; 85025

== ENCOUNTER 2016-07-03 12:53 | Inpatient (IN) | payer BC ==
[2016-07-03] VITALS (30 sets, daily range): BP systolic 134–228; BP diastolic 80–111; PULSE 54–75; RESP 10–22; TEMP 97.7–98.4; O2SAT 89–98; Ht 157.5 cm; Wt 94.9 kg
[~2016-07-03] VITALS: Ht 157.5 cm; Wt 94.9 kg
[~2016-07-03 12:53] MED LIST changes: -ERTAPENEM 1 G in NORMAL SALINE 100 ML IV ONE; -LIDOCAINE 1% (10mg/ml) 2ml SDV INJ ONE
--- OUTSIDE RECORDS SUMMARY | 2016-07-03 12:58 | XMS REPORT ---
Author Author GENERATED, SYSTEM Organization Unknown Address Unknown Phone Unavailable Care Team Providers Care Medical Technologist Name Role Phone MD ELGIN, LAURA RUIZ [...]
--- OUTSIDE RECORDS SUMMARY | 2016-07-03 12:58 | XMS REPORT | Continuity of Care Document ---
Author Author [facility] Organization [facility] Address Unknown Phone Unavailable Support Name Relationship Address Phone SHEEBA VILLARREAL FACS, MD Caregiver [address] [place] [address] [place] [address] Unavailable NAOMI STEARNS Caregiver [address] [place] [address] Unavailable TJ GARCIA Next Of Kin [address] [place] [address] Insurance Providers Guarantor Keshia Garcia Address [address] [place] [address] Email DENIED 07-02-16 Payer [facility] Policy Number [id number] Subscriber's Name Keshia Garcia Relationship 18 Self Group Number [id number] Advance Directives Directive Response Recorded Date/Time Ordered Resuscitation Status Full Code 07/01/16 1:33pm Resuscitation Documents on File No 07/02/16 11:19am DPOA for Healthcare Only No 07/02/16 11:19am Living Will No 07/02/16 11:19am Problems No problem information available. Medications Current Home Medications Medication Dose Units Route Directions Days Qty Instructions Start Date Bumetanide 2 Mg Tablet 1 Tab Oral Daily as needed for Prn Orders 30 Tablet 07/01/16 Ezetimibe (Zetia) 10 Mg Tablet 1 Tab Oral Bedtime 07/01/16 Levothyroxine Sodium 75 Mcg Tablet 1 Tab Oral Daily 30 07/01/16 Meloxicam 7.5 Mg Tablet 1 Tab Oral Daily for Pain 30 07/01/16 Metformin Hcl 500 Mg Tablet 1 Tab Oral As Needed 60 07/01/16 Nebivolol Hcl (Bystolic) 20 Mg Tablet 1 Tab Oral Twice A Day 60 Potassium Chloride 10 Meq Capsule.er 2 Cap Oral Twice A Day for Prn Orders 120 07/01/16 Verapamil Hcl (Verapamil Er) 120 Mg Cap24h.pel 1 Tab Oral Give At Noon 30 07/01/16 Social History Social History Problem Response Recorded Date/Time Onset Date Status Chewing Tobacco Status No 07/01/2016 10:11am Not Applicable Not Applicable Hx Substance Use No 07/01/2016 10:11am Not Applicable Not Applicable Hx Alcohol Use No 07/01/2016 10:11am Not Applicable Not Applicable Has the pt used tobacco in the last 12 months No 07/01/2016 10:11am Not Applicable Not Applicable Query Response Start Date Stop Date Smoking Status Former smoker Hospital Discharge Instructions No hospital discharge instructions. Plan of Care Discharge Date 07/02/16 8:00pm Prescriptions See Medication Section Functional Status Query Response Date Recorded Ability to complete ADL's impeded by No change July 02, 2016 11:19am Allergies, Adverse Reactions, Alerts Allergen Type Severity Reaction Status Last Updated Sulfa (Sulfonamide Antibiotics) Allergy Unknown Active 07/01/16 Hydralazine Allergy Unknown AT. FIB Active 07/01/16 WHEAT FLOUR Allergy Unknown COUGHING Active 07/01/16 Immunizations Query Response on File Recorded Date/Time Hx Influenza Vaccination Y fall 201507/01/16 10:11am Hx Pneumococcal Vaccination Yes 07/01/16 10:11am Hx Influenza Vaccination Y fall 201507/01/16 10:11am Vital Signs Acute Vital Signs Vital Response Date/Time Temperature (Fahrenheit) 98.0 deg F (96.8 - 99.1) 07/02/2016 10:45am Temperature (Calculated Celsius) 36.09624 degrees C (36.0 - 37.3) 07/02/2016 10:45am Temperature Source Oral 07/02/2016 10:45am Pulse Rate (adult) 54 bpm (60 - 100) 07/02/2016 10:45am Respiratory Rate 16 breaths/min (10 - 20) 07/02/2016 10:45am O2 Sat by Pulse Oximetry 95 % (90 - 100) 07/02/2016 10:45am Oxygen Delivery Method Room Air 07/02/2016 10:45am Blood Pressure 188/92 mm Hg 07/02/2016 6:45pm Blood Pressure Source Automatic Cuff 07/02/2016 6:45pm Height (Feet) 5 feet 07/02/2016 10:45am Height (Inches) 2.00 inches 07/02/2016 10:45am Weight (Kilograms) 94.200 kg 07/02/2016 10:45am Body Mass Index (BMI) 38.0 07/02/2016 10:45am Results Laboratory Results Test Name Result Units Flags Reference Collection Date/Time Result Date/ Time Comments White Blood Count 10.7 T/MM3 4.5-11.0 07/02/2016 11:07/02/2016 11: 18am Red Blood Count 5.36 M/MM3 H 4.00-5.20 07/02/2016 11:07/02/2016 11: 18am Hemoglobin 14.9 GM/DL 12-16 07/02/2016 11:07/02/2016 11:18am Hematocrit 45.7 % 36-46 07/02/2016 11:07/02/2016 11:18am Mean Corpuscular Volume 85.3 UM3 80-100 07/02/2016 11:07/02/2016 11:18am Mean Corpuscular Hemoglobin 27.8 UUG 26-34 07/02/2016 11:2016 11:18am Mean Corpuscular Hemoglobin Concent 32.6 GM/DL 31-37 07/02/2016 11:07/02/2016 11:18am RDW Standard Deviation 48.7 FL 36.9-50.2 07/02/2016 11:07/02/2016 11:18am Platelet Count 415 T/MM3 H 130-400 07/02/2016 11:07/02/2016 11: 18am Mean Platelet Volume 10.5 UM3 9.4-12.4 07/02/2016 11:07/02/2016 11 :18am Neutrophils (%) (Auto) 52.2 % 33-66 07/02/2016 11:07/02/2016 11: 18am Lymphocytes (%) (Auto) 35.1 % 23-45 07/02/2016 11:07/02/2016 11: 18am Monocytes (%) (Auto) 8.1 % 0-9.0 07/02/2016 11:07/02/2016 11:18am Eosinophils (%) (Auto) 3.9 % 0-4 07/02/2016 11:07/02/2016 11:18am Basophils (%) (Auto) 0.5 % 0-2 07/02/2016 11:07/02/2016 11:18am Immature Granulocyte % (Auto) 0.2 % 0.0-0.5 07/02/2016 11:2016 11:18am Absolute Neutrophils (auto) 5.6 T/MM3 1.8-7.7 07/02/2016 11:2016 11:18am Absolute Lymphocytes (auto) 3.8 T/MM3 1-4.8 07/02/2016 11:2016 11:18am Absolute Monocytes (auto) 0.9 T/MM3 H 0-0.8 07/02/2016 11:2016 11:18am Absolute Eosinophils (auto) 0.4 T/MM3 0-0.5 07/02/2016 11:2016 11:18am Absolute Basophils (auto) 0.1 T/MM3 0-0.2 07/02/2016 11:2016 11:18am Absolute Immature Granulocyte (auto 0.02 T/MM3 0.00-0.03 07/02/2016 11: 07/02/2016 11:18am Icterus Index < 2 0-7 07/02/2016 11:07/02/2016 11:28am Chemistry Specimen Hemolysis < 15 0-25 07/02/2016 11:07/02/2016 11:28am 0-25: Specimen Exhibited No Hemolysis. Turbidity < 20 0-20 07/02/2016 11:07/02/2016 11:28am Sodium Level 147 MEQ/L H 134-144 07/02/2016 11:07/02/2016 11:28am Potassium Level 3.8 MEQ/L 3.6-5 07/02/2016 11:07/02/2016 11:28am Chloride Level 104 MEQ/L 98-107 07/02/2016 11:07/02/2016 11:28am Carbon Dioxide Level 28 MEQ/L 22-30 07/02/2016 11:07/02/2016 11: 28am Anion Gap 15 MEQ/L 5-15 07/02/2016 11:1307/02/2016 11:28am Blood Urea Nitrogen 20.0 MG/DL H 7-17 07/02/2016 11:07/02/2016 11: 28am Creatinine 0.7 MG/DL 0.7-1.2 07/02/2016 11:07/02/2016 11:28am BUN/Creatinine Ratio 29 RATIO H 6-26 07/02/2016 11:07/02/2016 11: 28am Glomerular Filtration Rate Calc 85 07/02/2016 11:07/02/2016 11 :28am Glucose Level 153 MG/DL H 65-110 07/02/2016 11:1307/02/2016 11:28am Calculated Osmolality 288 MOSM/KG H 261-280 07/02/2016 11:2016 11:28am Calcium Level 10.0 MG/DL 8.4-10.2 07/02/2016 11:07/02/2016 11: 28am Total Bilirubin 0.90 MG/DL 0.20-1.30 07/02/2016 11:07/02/2016 11: 28am Alkaline Phosphatase 115 U/L 38-126 07/02/2016 11:07/02/2016 11: 28am Total Protein 8.5 G/DL H 6.3-8.2 07/02/2016 11:07/02/2016 11:28am Albumin 4.6 G/DL 3.5-5.0 07/02/2016 11:07/02/2016 11:28am Globulin 3.9 G/DL H 2.4-3.6 07/02/2016 11:07/02/2016 11:28am Albumin/Globulin Ratio 1.2 RATIO 1.1-2.2 07/02/2016 11:07/02/2016 11:28am Aspartate Amino Transf (AST/SGOT) 28 U/L 14-36 07/02/2016 11:07/02 11:28am Alanine Aminotransferase (ALT/SGPT) 33 U/L 9-52 07/02/2016 11:13 11:28am Glucometer 101 mg/dL 65-110 07/02/2016 6:54pm 07/02/2016 6:58pm Procedures Procedure Status Date Provider(s) Robot-assisted cholecystectomy Active 07/02/16 SHEEBA VILLARREAL MD, FACS, CWS Robot-assisted repair of ventral hernia Active 07/02/16 SHEEBA VILLARREAL MD , LOLI, CWS Encounters Encounter Location Arrival/Admit Date Discharge/Depart Date Attending Provider Departed [facility] 07/02/16 10:32am 07/02/16 8 :00pm SHEEBA VILLARREAL FACS, MD
--- OUTSIDE RECORDS SUMMARY | 2016-07-03 12:58 | XMS REPORT ---
Author Author GENERATED, SYSTEM Organization Unknown Address Unknown Phone Unavailable Care Team Providers Care Furrier Apprentice Name Role Phone MD ELGIN, LAURA RUIZ [...]
--- OUTSIDE RECORDS SUMMARY | 2016-07-03 12:58 | XMS REPORT ---
Author Author [facility] Organization Unknown Address Unknown Phone Unavailable Care Team Providers Care Employee Development Specialist Name Role Phone MD ELGIN, LAURA RUIZ [...]
--- OUTSIDE RECORDS SUMMARY | 2016-07-03 12:58 | XMS REPORT ---
Author Author [facility], SYSTEM Organization Unknown Address Unknown Phone Unavailable Care Team Providers Care Ndt Inspector Name Role Phone MD ELGIN, LAURA RUIZ [...]
[2016-07-03] MEDS ORDERED: LR 1,000 ML IV ONE (13:08)
[2016-07-03] MEDS ORDERED: ERTAPENEM 1 G in NORMAL SALINE 100 ML IV ONE (13:15)
[2016-07-03] MEDS ORDERED: IBUP-1724 PO (14:19)
[2016-07-03] MEDS ORDERED: BUPIVACAINE 0.25%/EPI 1:200,000 30ml SDV ONE (15:14)
[2016-07-03] MEDS ORDERED: SALINE FLUSH 10ml SYRINGE ONE ×2 (15:14→15:53)
[2016-07-03] MEDS ORDERED: PROPOFOL 200mg 20 ML IV ONE (15:21)
[2016-07-03] MEDS ORDERED: FENTANYL 250mcg/5ml INJECTION ONE (15:22)
[2016-07-03] MEDS ORDERED: LIDOCAINE 2% (20mg/ml) 5ml PF SDV ONE (15:22)
[2016-07-03] MEDS ORDERED: MIDAZOLAM 2mg/2ml INJECTION ONE (15:22)
[2016-07-03] MEDS ORDERED: ROCURONIUM 50mg/5ml INJECTION IV ONE (15:28)
[2016-07-03] MEDS ORDERED: ONDANSETRON 4mg/2ml INJECTION ONE (15:53)
[2016-07-03] MEDS ORDERED: EPHEDRINE SULFATE 50mg/ml INJECTION ONE (15:53)
[2016-07-03] MEDS ORDERED: DEXAMETHASONE 4mg/ml - 1ml INJECTION ONE (15:53)
[2016-07-03] MEDS ORDERED: HYDROMORPHONE 2mg/ml INJECTION ONE (17:51)
--- NOTE | 2016-07-03 18:22 | ANESPREOP ---
Anesthesia Record Date and Time DATE: 07/03/16 TIME: 1400 Proposed Surgical Procedure robotic LC and hernia repairs NPO since: >8hrs Allergies: Coded Allergies: Sulfa (Sulfonamide Antibiotics) (Verified Allergy, Unknown, 07/03/16) hydralazine (Verified Allergy, Unknown, AT. FIB, 07/03/16) Uncoded Allergies: WHEAT FLOUR (Allergy, Unknown, COUGHING, 07/01/16) Ht/Wt/BMI Height: 5 ' 2.00 " Weight: 92.300 kg BMI: 37.2 kg/m2 Vital Signs Date Time Temp Pulse Resp B/P Pulse Ox O2 Delivery O2 Flow Rate FiO2 07/03/16 14:05 63 211/94 Room Air 07/03/16 13:10 98.4 16 94 Medications Bumetanide (Bumetanide) 2 Mg Tablet, 1 TAB PO DAILY PRN for PRN ORDERS, ( Reported) Last Taken: on Unknown Date & Time Ezetimibe (Zetia) 10 Mg Tablet, 1 TAB PO HS, (Reported) Last Taken: on 07/02/16 2200 Ibuprofen (Ibuprofen) 200 Mg Tablet, 1 TAB PO Q4H PRN for PAIN, (Reported) Last Taken: on 06/19/16 Levothyroxine Sodium (Levothyroxine Sodium) 75 Mcg Tablet, 1 TAB PO DAILY, (Reported) Last Taken: on 07/03/16 0800 Meloxicam (Meloxicam) 7.5 Mg Tablet, 1 TAB PO DAILY, (Reported) Last Taken: on 06/26/16 Metformin HCl (Metformin HCl) 500 Mg Tablet, 1 TAB PO PRN, (Reported) Last Taken: on 07/02/16 2130 Nebivolol HCl (Bystolic) 20 Mg Tablet, 1 TAB PO BID, (Reported) Last Taken: on 07/03/16 0800 Potassium Chloride (Potassium Chloride) 10 Meq Capsule.er, 2 CAP PO BID, (Reported) Last Taken: on Unknown Date & Time Verapamil HCl (Verapamil ER) 120 Mg Cap24h.pel, 1 TAB PO NOON, (Reported) Last Taken: on 07/03/16 1000 Currently on Beta Carito: No Medical/Surgical History Anesthesia PMH: Reports: *Diabetes, *Hypertension (TAKES MEDS - currently uncontrolled. ), Cancer (HODGKINS LYMPHOMA), Obesity, Sleep Apnea, Thyroid Disease (HYPOTHYROIDISM), Denies: Anesthesia Reactions (NO AIRWAY ISSUES ), Arthritis, Blood Transfusion Reac, Clotting Problems, Glaucoma, Malignant Hyperthermia Smoking Status: Never smoker Use Chewing Tobacco?: No Second Hand Exposure: No Substance Use Type: does not use Substance last used: unknown Alcohol Intake: none Last Drink: unknown Past Surgical History Orthopedic Surgeries: Abdominal Surgeries: Yes - SPLEEN REMOVED, APPY Genitourinary Surgeries: Cardiac Surgeries: Endocrine Surgeries: Reproductive Surgeries: Neurological Surgeries: Ear Surgeries: Nose Surgeries: Throat Surgeries: Other Surgeries: Yes - BIOPSY-UNDERARM Anesthesia Adverse Reactions: FOUND nausea and vomiting Family Hx of Anesthesia Advers: none Hx of Motion Sickness: No Pertinent Findings EKG Rhythm: Sinus Rhythm Physical Exam Respiratory: Lungs clear Cardiovascular: FOUND Regular rate, rhythm Airway Assessment Mallampati Score: III TMD: 3 Fingerbreadths Neck Extension: Good Overall Assessment: May Be Diff Mask Vent., May Be Diff Intubation ASA: 3 Plan Anesthesia Plan: GETA Discussion Discussed risks/options/alternatives of anesthesia and questions answered. Patient consents. Nursing pain assessment noted. Attestation Statement Prior to the delivery of any anesthetic medication, I examined the patient, developed the plan, obtained the patient's consent and discussed the risk and benefits of the procedure with the patient/guardian. Additional Information BP uncontrolled. Spoke with Darren and Dr Mckeon about it with concerns for postoperative management- state they wish to proceed with procedure and will have a hospitalist follow her for post operative BP management. MATHEUS PARIKH CRNA Jul 03, 2016 18:16
[2016-07-03] MEDS ORDERED: NEOSTIGMINE 10mg/10ml INJECTION ONE (18:26)
[2016-07-03] MEDS ORDERED: GLYCOPYRROLATE 0.4mg/2ml INJECTION ONE (18:26)
[2016-07-03] MEDS ORDERED: ONDANSETRON 4mg/2ml INJECTION IV PRN (18:45)
[2016-07-03] MEDS ORDERED: METOCLOPRAMIDE 10mg/2ml INJECTION IV PRN (18:45)
[2016-07-03] MEDS ORDERED: KETOROLAC 15mg/ml INJECTION IV PRN (18:45)
--- NOTE | 2016-07-03 18:56 | GSPOSTPN ---
Procedure Procedure Date: Jul 03, 2016 Surgeon: Mike Assisting Surgeon: Darren Parish Anesthesia: Local, GETA ASA: 3 Procedure Robotic assisted laparoscopic cholecystectomy with [employer] imaging and primary repair of incisional hernia and umbilical hernia Complications Complications Estimated Blood Loss See Anesthesia Record. Vital Signs See Anesthesia and PACU record. SHIRLEY PARISH WORM RAISER Jul 03, 2016 18:56
--- NOTE | 2016-07-03 19:30 | NUR ---
Recovery Patient arrives to CCU4 at 1900 from OR with Connor Garnett RN. Report given at beside. NC applied at 4L O2 and OPA removed. Patient responds to stimuli, but is still very fatigued. 5 abdominal incision sites are CDI and binder in place. BP on arrival is 190s systolic, HR 60, temp 98.
[2016-07-03] MEDS: LR 1,000 ML IV SCH (19:32)
[2016-07-03] MEDS: HYDROMORPHONE 2mg/ml INJECTION IV PRN ×2 (19:50→22:10)
[2016-07-03] MEDS: HYDROCODONE/APAP 5 mg/325 mg TABLET PO PRN (20:59)
[2016-07-03] MEDS: NEBIVOLOL 5 MG TABLET PO SCH (20:59)
[2016-07-04] VITALS (40 sets, daily range): BP systolic 101–215; BP diastolic 68–125; PULSE 50–71; RESP 10–29; TEMP 97.6–98.8; O2SAT 89–97
[2016-07-04] MEDS: HYDROCODONE/APAP 5 mg/325 mg TABLET PO PRN ×4 (01:10→19:23)
[2016-07-04] MEDS ORDERED: AMLODIPINE 5 MG TABLET PO ONE (02:15)
--- NOTE | 2016-07-04 02:19 | NUR ---
Hypertension Patient BP has been in the 180-200s systolic while awake. Dr. Estrella notified and a one time dose of 5mg Norvasc was ordered and administered. Will continue to monitor closely.
[2016-07-04] MEDS: LR 1,000 ML IV SCH ×2 (03:33→12:13)
[2016-07-04] MEDS: HYDROMORPHONE 2mg/ml INJECTION IV PRN ×3 (03:37→21:53)
[2016-07-04 05:15] LABS: ANION GAP 14 MEQ/L (5-15); BUN/CREATININE RATIO 20 RATIO (6-26); CALCIUM 8.8 MG/DL (8.4-10.2); CHLORIDE 105 MEQ/L (98-107); CO2 - CARBON DIOXIDE 24 MEQ/L (22-30); CREATININE 0.7 MG/DL (0.7-1.2); GLOMERULAR FILTRATION RATE 85; GLUCOSE 188 MG/DL (65-110); POTASSIUM 4.6 MEQ/L (3.6-5); SODIUM 143 MEQ/L (134-144)
[2016-07-04 06:01] LABS: BASOPHILS % (AUTO) 0.2 % (0-2); EOSINOPHILS % (AUTO) 0.1 % (0-4); HCT - HEMATOCRIT 44.9 % (36-46); HGB - HEMOGLOBIN 14.9 GM/DL (12-16); IMMATURE GRANULOCYTE # (AUTO) 0.03 T/MM3 (0.00-0.03); IMMATURE GRANULOCYTE % (AUTO) 0.2 % (0.0-0.5); LYMPHOCYTES # (AUTO) 1.8 T/MM3 (1-4.8); LYMPHOCYTES % (AUTO) 11.7 % (23-45); MEAN CORPUSCULAR HGB 28.3 UUG (26-34); MEAN CORPUSCULAR HGB CONC(MCHC 33.2 GM/DL (31-37); MEAN CORPUSCULAR VOLUME 85.4 UM3 (80-100); MEAN PLATELET VOLUME 11.5 UM3 (9.4-12.4); MONOCYTES # (AUTO) 0.9 T/MM3 (0-0.8); MONOCYTES % (AUTO) 5.5 % (0-9.0); NEUTROPHILS #(AUTO)-ABSOLUTE 12.9 T/MM3 (1.8-7.7); NEUTROPHILS % (AUTO) 82.3 % (33-66); RED BLOOD COUNT 5.26 M/MM3 (4.00-5.20); WBC - WHITE BLOOD COUNT 15.7 T/MM3 (4.5-11.0)
--- NOTE | 2016-07-04 06:09 | NUR ---
Shift Summary Patient has rested well during the night. No nausea or SOA reported. Pain is currently been a 3-4/10 this morning. Did give Toradol, Dilaudid, and Foster to help decreased and maintain pain level (see eMAR for times). Incisions sites are all CDI except below the navel which had minimal drainage. HR has been 50-60s, sinus rhythm. Was able to wean O2 down to 1L, unable to wean to RA. BP while sleeping has been 130-140s systolic, while awake BP increases to 180-200s systolic. +1 pitting edema in legs. Lungs are clear. Bowel sounds are hypoactive. Urine output has been adequate. Patient has had some forgetfulness since recovery, but is AOX3.
[2016-07-04] MEDS: LEVOTHYROXINE 75 MCG TABLET PO SCH (06:38)
--- NOTE | 2016-07-04 09:04 | NUR ---
CM CM IN TO VISIT WITH PT. SHE IS ALERT AND ORIENTED. SHE PLANS TO RETURN HOME. SHE DENIES DC NEEDS. SHE REPORTS THAT HER SPOUSE WILL BE ABLE TO ASSIST NEEDED. LACE SCORE IS 3. SHE IS GIVEN CM CONTACT INFORMATION. Addendum: 07/04/16 at 0905 by OSEI CONTRERAS RN Amended: Links added.
[2016-07-04] MEDS: NEBIVOLOL 5 MG TABLET PO SCH ×2 (09:12→21:49)
--- OUTSIDE RECORDS SUMMARY | 2016-07-04 12:03 | XMS REPORT ---
Author Author [facility], SYSTEM Organization Unknown Address Unknown Phone Unavailable Care Team Providers Care Management Supervisor Name Role Phone MD ELGIN, LAURA RUIZ [...]
--- OUTSIDE RECORDS SUMMARY | 2016-07-04 12:03 | XMS REPORT ---
Author Author [facility] Organization Unknown Address Unknown Phone Unavailable Care Team Providers Care Color Making Supervisor Name Role Phone MD ELGIN, LAURA [...]
--- OUTSIDE RECORDS SUMMARY | 2016-07-04 12:03 | XMS REPORT ---
Author Author [facility], SYSTEM Organization Unknown Address Unknown Phone Unavailable Care Team Providers Care Jail Guard Name Role Phone MD ELGIN, LAURA RUIZ [...]
--- OUTSIDE RECORDS SUMMARY | 2016-07-04 12:03 | XMS REPORT ---
Author Author [facility], SYSTEM Organization Unknown Address Unknown Phone Unavailable Care Team Providers Care Mud Cleaner Operator Name Role Phone MD ELGIN, LAURA [...]
[2016-07-04] MEDS: ENOXAPARIN 40 MG/0.4 ML INJECTION SQ SCH (12:14)
--- NOTE | 2016-07-04 13:13 | CONSPD ---
Consultation Info Date DATE: 07/04/16 TIME: 12:38 Date of Consultation: Jul 04, 2016 Attending Physician: Srini Reason for Consultation: Hypertension HPI - Adult Date DATE: 07/04/16 TIME: 12:38 General Chief Complaint: High blood pressure History of Present Illness This is a 61-year-old female admitted to the general surgery service after having hernia repairs. We are consult for management of her multiple medical medical issues. Patient was noted to have markedly elevated high blood pressure both preoperatively and postoperatively. Patient up a relates that this is new for her. States that when she is seen in the outpatient setting her systolic blood pressures typically in the 130 range. Patient states she takes her medications as prescribed. Currently she only complains of some mild abdominal pain. States that she has been taking her medications as she is given. She denies any chest pain. Past Medical History Past Medical History Hypertension Diabetes mellitus type 2 Dyslipidemia Hypothyroidism Osteoarthritis Current Medications Home Meds Reported Medications Ibuprofen (Ibuprofen) 200 Mg Tablet, 1 TAB PO Q4H Y for PAIN, TAB 07/03/16 Potassium Chloride (Potassium Chloride) 10 Meq Capsule.er, 2 CAP PO BID for PRN ORDERS, #120 07/01/16 Bumetanide (Bumetanide) 2 Mg Tablet, 1 TAB PO DAILY Y for PRN ORDERS, #30 TAB 5 Refills 07/01/16 Meloxicam (Meloxicam) 7.5 Mg Tablet, 1 TAB PO DAILY for PAIN, #30 07/01/16 Metformin HCl (Metformin HCl) 500 Mg Tablet, 1 TAB PO PRN, #60 07/01/16 Ezetimibe (Zetia) 10 Mg Tablet, 1 TAB PO HS 07/01/16 Verapamil HCl (Verapamil ER) 120 Mg Cap24h.pel, 1 TAB PO NOON, #30 07/01/16 Nebivolol HCl (Bystolic) 20 Mg Tablet, 1 TAB PO BID, #60 07/01/16 Levothyroxine Sodium (Levothyroxine Sodium) 75 Mcg Tablet, 1 TAB PO DAILY, #30 07/01/16 Allergies: Coded Allergies: Sulfa (Sulfonamide Antibiotics) (Verified Allergy, Unknown, 07/03/16) hydralazine (Verified Allergy, Unknown, AT. FIB, 07/03/16) Uncoded Allergies: WHEAT FLOUR (Allergy, Unknown, COUGHING, 07/01/16) Family History Family History: Mother had an embolic CVA Social History Smoking Status: Never smoker Does patient use chewing tobac: No Second Hand Exposure: No Substance Use Type: does not use Substance last used: unknown Last Drink: unknown Advance Directives: No DPOA for Healthcare Only Review of Systems All Other Systems All Other Systems: Reviewed Comments As per history of present illness. All systems were reviewed and otherwise negative. Physical Exam General Vital Signs Vital Signs Date Time Temp Pulse Resp B/P Pulse Ox O2 Delivery O2 Flow Rate FiO2 07/04/16 09:04 22 07/04/16 08:18 97.6 54 101/86 96 Nasal Cannula 1.00 Height (Feet): 5 Height (Inches): 2.00 Comments General-awake alert oriented 3 in no acute distress HEENT-PERRLA EOMI CV-regular rate and rhythm Lungs-clear to auscultation bilaterally Abdomen- soft nondistended bowel sounds positive mild pain upon palpation Extremities-no edema cyanosis or clubbing Neurological-cranial nerves II through XII grossly intact Neurologic RN Documented GCS Eye Opening: Verbal: Motor: Total: Laboratory Laboratory Tests Test 07/03/16 13:29 07/03/16 21:09 07/04/16 04:34 07/04/16 06:37 Glucometer 124mg/dL 165mg/dL 153mg/dL White Blood Count 15.7T/MM3 Red Blood Count 5.26M/MM3 Hemoglobin 14.9GM/DL Hematocrit 44.9% Mean Corpuscular Volume 85.4UM3 Mean Corpuscular Hemoglobin 28.3UUG Mean Corpuscular Hemoglobin Concent 33.2GM/DL RDW Standard Deviation 49.4FL Platelet Count 380T/MM3 Mean Platelet Volume 11.5UM3 Immature Granulocyte % (Auto) 0.2% Neutrophils (%) (Auto) 82.3% Lymphocytes (%) (Auto) 11.7% Monocytes (%) (Auto) 5.5% Eosinophils (%) (Auto) 0.1% Basophils (%) (Auto) 0.2% Absolute Immature Granulocyte (auto 0.03T/MM3 Absolute Neutrophils (auto) 12.9T/MM3 Absolute Lymphocytes (auto) 1.8T/MM3 Absolute Monocytes (auto) 0.9T/MM3 Absolute Eosinophils (auto) 0.0T/MM3 Absolute Basophils (auto) 0.0T/MM3 Turbidity < 20 Sodium Level 143MEQ/L Potassium Level 4.6MEQ/L Chloride Level 105MEQ/L Carbon Dioxide Level 24MEQ/L Anion Gap 14MEQ/L Blood Urea Nitrogen 14.0MG/DL Creatinine 0.7MG/DL Glomerular Filtration Rate Calc 85 BUN/Creatinine Ratio 20RATIO Glucose Level 188MG/DL Calculated Osmolality 281MOSM/KG Calcium Level 8.8MG/DL Icterus Index < 2 Chemistry Specimen Hemolysis 19 Impression/Recommendation Impression Hypertension Diabetes mellitus type 2 Dyslipidemia Hypothyroidism Recommendation #1 continue current medication regimen. #2 we will dose adjust antihypertensives as needed. #3 monitor electrolytes and replace as needed. SACHA MARTIN MD Jul 04, 2016 12:53
[2016-07-04] MEDS: VERAPAMIL SR 120 MG TABLET PO SCH (14:22)
--- NOTE | 2016-07-04 15:22 | NUR ---
Admit Pt transferred to floor via wheelchair by Marco Antonio East RN. Pt on RA. Family present at time of transfer. Pt up in recliner at this time w/ chair alarm. Call light w/in reach.
[2016-07-04] MEDS ORDERED: INSULIN ASPART 100 UNIT/ML SQ PRN (15:45)
--- NOTE | 2016-07-04 16:27 | OPNOTEF ---
DATE OF SURGERY 07/02/16 SURGEON Figueroa Mckeon M.D. COMMUNICATIONS ANALYST Darren Parish APRN PREOPERATIVE DIAGNOSIS Symptomatic cholelithiasis, symptomatic incisional hernias. POSTOPERATIVE DIAGNOSIS Symptomatic cholelithiasis, symptomatic incisional hernias. PROCEDURE Robotic assisted laparoscopic repair of incarcerated incisional hernias, extensive lysis of adhesions, cholecystectomy with use of Firefly biliary imaging. ANESTHESIA General endotracheal. FLUIDS Please see chart. EBL Please see chart. INDICATIONS Mrs. Lee is a 61-year-old female who recently presented my office as a result of history of abdominal pain along her prior midline incision as well as within her right upper quadrant. She was found have cholelithiasis upon ultrasonography. It was felt the patient was indeed suffering from symptomatic cholelithiasis. It was therefore recommended she undergo cholecystectomy as well as repair of several incisional hernias that were noted upon her upon prior CT scan. Patient presents today to undergo these procedures. For completeness please refer to the patient's chart. FINDINGS Upon laparoscopy the patient was found to have numerous adhesions between the anterior abdominal wall and the underlying omentum. There were some adhesions between the anterior abdominal wall and the underlying small bowel. Perhaps an 45 minutes to an hour was spent performing adhesiolysis. Gallbladder was found to be slightly thickened in nature and adherent to the adjacent omentum indicative of prior inflammation. A standard cholecystectomy was able be completed without incident. Along the patient's prior midline incision the patient was found to have numerous incisional hernias that were ranged on the order of about 5 mm up to perhaps 2 cm in greatest dimension. These were all closed primarily laparoscopically. The patient was also found to have a fascial defect located below the umbilicus that was also closed primarily. Small bowel, colon, peritoneal surfaces otherwise that was visualized were within normal limits. PROCEDURE After informed consent was obtained the patient was brought to the operative suite and placed on the table supine fashion. The abdomen was prepped and draped in sterile fashion. Formal time-out was then completed. The patient did have a known hernia below the level of the umbilicus. This was along her prior midline incision. I elected to utilize this as my camera port. 0.25% Marcaine and epinephrine was injected overlying the palpable mass below umbilicus. A 3-4 cm incision was made overlying the area of analgesia. Dissection was carried down into the deep subcuticular tissues and underlying fascia. One could then see a portion of omentum protruding through the fascial defect. This omentum was about three to four cm in length and about a centimeter in width. The edges of the fascial defect were then dissected out with use of electrocautery. Hernia sac was then incised and the omentum was then returned back into the peritoneal cavity. Two uirmcu-cj-kkbkt sutures of 0 Vicryl were then placed along the edges of the fascial defect and tied securely. Two additional blqepz-hr-xotji sutures of O PDS were then placed within the central portion of the fascial defect and not tied but left in place intact. "Tagged" with a hemostat." A finger was then placed through the fascial defect in the adhesions adjacent to the fascial defect between the omentum and the anterior abdominal wall and were gently swept bluntly. A 12 ml port was then placed through the fascial defect and the sutures that were left adjacent to the port were then tightened the utilizing the "tagged hemostat." Pneumoperitoneum was established to a patient pressure of 15 mmHg with carbon dioxide. Laparoscopic then placed through the camera port into the peritoneal cavity. Unfortunately the patient did have a fair amount of adhesions from the umbilicus extending up into the epigastric region. One could visualize however out laterally to the patient's right. Under direct visualization a 12 mm air assist port was placed along the right lateral abdominal wall as well as additional 8 mm port within the right lower quadrant of the abdomen. Each port site was preinjected with 0.25% Marcaine with epinephrine and as stated above was placed under visualization. The robot was then docked overlying the patient's right shoulder at a 45 degree angle. A fenestrated bipolar grasper was placed within the port along the right lateral abdominal wall and scissors were placed within the 8 mm Di Ranjana port within the right lower quadrant of the abdomen. Ports were then reassigned at the console. Next, under direct visualization the next 45 minutes to hour was spent performing adhesiolysis. Fortunately the majority of the adhesions between the anterior abdominal wall in the underlying viscus was between the omentum and the anterior abdominal wall. There was several fascial defects which contained omentum. The omentum was able be reduced through these fascial defects. After about 45 minutes of careful meticulous dissection the anterior abdominal wall was able to be completely freed. There were several fascial defects that were present along her prior midline incision from the umbilicus up into the epigastric region. Next, under direct visualization an additional 8 mm port was then placed within the left upper quadrant. The port site was also preinjected with 0.25% Marcaine with epinephrine. Next the scissors were placed within the port site within the left upper quadrant and a pro grasper was placed within the assist port which was robotic arm three. Fundus of the gallbladder was now able to be visualized and retracted in cephalad fashion. There were some adhesions between the gallbladder and the adjacent omentum. It should be noted that the patient was placed reverse Trendelenburg position and rotated towards her left prior to docking the robot. These adhesions were then taken down and the fundal portion of gallbladder was then continued to be retracted in a cephalad fashion. Next the infundibular portion of gallbladder was then grasped with the fenestrated bipolar grasper and retracted anteriorly and laterally as to provide exposure of triangle of [place]. Dissection was began high upon the end of the gallbladder. Firefly biliary imaging was performed during the process of dissection and one could clearly see the cystic duct for it fluoresced quite well. Cystic duct fluoresced quite well down towards the junction with common bile duct. The lateral and medial aspects of the infundibulum were then freed until the critical view of safety had been obtained and the only remaining structures coming forth from the infundibulum of the gallbladder were that of the cystic duct and cystic artery. A single hemoclip was placed upon the cystic artery just proximally to infundibulum of the gallbladder. Additional Hem-o-roberto clip was then placed upon the cystic duct just beyond the infundibular portion of gallbladder. Next additional Hem-o -Roberto clip was then placed upon the infundibular gallbladder just above the junction with the cystic duct. Cystic duct was then transected between the two Hem-o-roberto clips. The cystic artery was then divided with electrocautery beyond the Hem-o-roberto clip upon the mid portion of the infundibulum of the gallbladder. Gallbladder was then dissected off the liver bed fossa. At no point time was electrocautery performed adjacent to hollow viscus such as the transverse colon , duodenum or stomach. Gallbladder was then left within the right upper quadrant of the abdomen. Next attention was directed towards closure of the multiple fascial defects. I elected to close the fascial defects primarily. There was a small amount of bile that was spilled during the process of performing the cholecystectomy. This is considered to be inherent to the procedure. Next the multiple fascial defects along her prior midline incision were then closed primarily in a running fashion with #1 PDS V-Loc suture. First suture was began within the epigastric region just beyond the last visible fascial defect. Edges of the rectus muscle were then imbricated to one another in a running fashion down to the level umbilicus. V-Loc suture was then utilized and the suture line was then oversewn from a caudad fashion near the umbilicus back up in a cephalad fashion. This resulted in nice imbrication of the fascial edges along the rectus muscles so that all of the fascial defects were now closed primarily. As stated above I elected not to incorporate a piece of mesh into the repair. Next, the robot was then undocked. The gallbladder was then removed from the infraumbilical port site. Irrigation was performed and all irrigant was suctioned until clear. Prior areas of dissection were inspected and found be hemostatic in nature. Previously placed Hem-o-Roberto clips upon the cystic artery and cystic duct were visualized and remained to be intact. Ports were then removed under direct visualization. The air seal port was removed initially and the fascial opening at this location was closed in a [id number]-hb-cdwdi fashion with 0 Vicryl laparoscopically utilizing laparoscopic suture passer. Remaining Di Ranjana ports were then removed under visualization. Lastly, the camera port was then removed and the previously placed tccfyo-si-yduiy sutures of O PDS were then tied securely resulting in a nice imbrication of the fascial defect located below the umbilicus. Skin incisions were closed with flo. The patient has awakened from her anesthesia. The patient will be sent back to the ICU once deemed to be in stable condition. Additionally, it should be noted that Darren Parish APRN, was present throughout the entire case and played a pivotal role in providing assistance and exposure during the course of the procedure. RENU
--- NOTE | 2016-07-04 18:22 | NUR ---
Summary Pts VS stable on RA. A&OX3. Pt up with standby assistance. Pt denies nausea, Pt given PRN [place] for pain. Pt has been up to the BR after colbert removal and having adequate output. Dressings to lap sites on abdomen, drainage circled. Side rails up X2, call light w/in reach, bed alarm on.
[2016-07-05] VITALS (10 sets, daily range): BP systolic 135–188; BP diastolic 66–111; PULSE 58–80; RESP 16–18; TEMP 97.3–99.8; O2SAT 87–97
--- NOTE | 2016-07-05 01:59 | NUR ---
Chart Check 24 hour chart check completed
[2016-07-05] MEDS: HYDROCODONE/APAP 5 mg/325 mg TABLET PO PRN ×4 (04:17→21:08)
--- NOTE | 2016-07-05 04:37 | NUR ---
STATUS PATIENT ALERT AND ORIENTEDX3. PATIENT AMBULATED BATHROOM WITH ONE STANDBY ASSIST. ADEQUATE URINARY OUTPUT.PATIENT C/O PAIN AT ABD LAP SITE. PATIENT RATED 5-6 /10. PRN NORCO 5X2 WAS ADMINISTRATED.PRN DILAUDID X1WAS GIVEN .PATIENT WAS ABLE TO SLEEP FEW HOURS DURING NIGHT AFTER PAIN MED. DRESSINGS TO LAP SITES ON ABDOMEN ,NO NEW DRAINAGE AT CIRCLED AREA. 1L O2 VIA NC. DENIES CHEST PAIN ,SOA,OR N/V. CALL LIGHT WITHIN REACH. BED ALARM ON. CONTINUE TO MONITOR.
--- NOTE | 2016-07-05 05:09 | NUR ---
PAIN PATIENT C/O PAIN AT ABD LAP SITES AFTER AMBULATING TO BATHROOM. . PATIENT RATED PAIN AT 6/10. PRN DILAUDID IV WAS ADMINISTRATED. PATIENT IS RESTING IN BED QUIETLY.CONTINUE TO MONITOR.
[2016-07-05] MEDS: LEVOTHYROXINE 75 MCG TABLET PO SCH (05:31)
[2016-07-05] MEDS: HYDROMORPHONE 2mg/ml INJECTION IV PRN (05:49)
[2016-07-05] MEDS: NEBIVOLOL 5 MG TABLET PO SCH ×2 (09:09→21:07)
[2016-07-05] MEDS: ENOXAPARIN 40 MG/0.4 ML INJECTION SQ SCH (09:09)
--- NOTE | 2016-07-05 09:54 | PNPDOC ---
Subjective Date DATE: 07/05/16 TIME: 09:52 Subjective Complains of vague diffuse abdominal pain. After out most of the night. Denies nausea or vomiting. Denies diarrhea. Objective Vital Signs Vital signs Vital Signs Date Time Temp Pulse Resp B/P Pulse Ox O2 Delivery O2 Flow Rate FiO2 07/05/16 09:03 179/111 07/05/16 09:00 99.8 66 16 90 Nasal Cannula 1.50 Height (Feet): 5 Height (Inches): 2.00 Weight (Kilograms): 95.000 General Comments Gen.-AAO 3; NAD. CV-RRR. Lungs-CTA B. Abdomen-soft, nondistended, bowel sounds positive, mild diffuse bilateral upper quadrant tenderness. Extremities-no edema cyanosis or clubbing. Neurological-cranial nerves II through XII grossly intact. Laboratory Laboratory Laboratory Tests 07/04/16 04:34 Laboratory Tests 07/04/16 04:34 Assessment & Plan Assessment Impression Hypertension Diabetes mellitus type 2 Dyslipidemia Hypothyroidism Recommendation #1 continue current medication regimen. #2 we will dose adjust antihypertensives as needed. Pain is likely contributing to elevated readings as well. #3 monitor electrolytes and replace as needed. Code Status Full Code, unverified Hospital Course Summary Disclaimer The hospital course summary below is not to be considered part of the above Progress Note. SACHA MARTIN MD Jul 05, 2016 09:54
--- NOTE | 2016-07-05 10:04 | PNF ---
DATE 07/04/2016 FINDINGS Mrs. Lee this morning was without complaints. States that she does have some tenderness within her upper abdomen at the site of her ventral herniorrhaphy. Patient, however, denies severe pain. EXAM VITAL SIGNS: Afebrile, normotensive. Please refer to EMR. ABDOMEN: Soft. Minimal incisional tenderness. No evidence for guarding or rebound. LABORATORY/RADIOGRAPHIC EVALUATION BMP was obtained and found to be within normal limits. CBC was obtained this morning and she was found have a component of leukocytosis with a white count of 15,000 which most likely is stress-induced from her surgery. Hemoglobin normal at 14.9. ASSESSMENT 61-year-old female status post robotic-assisted laparoscopic repair of multiple incarcerated incisional hernias and cholecystectomy. Patient currently doing well this morning. PLAN Will go ahead and transfer out to the floor. Her blood pressure remains slightly elevated. Will defer any type of medication changes to control her hypertension to the hospitalist system. Will go ahead and DC her [place]. Will go ahead and make as an inpatient today. I do believe she is going to require additional IV narcotics for control of her ventral herniorrhaphy discomfort. Patient hopefully will be able to be discharged tomorrow morning. RENU
[2016-07-05] MEDS: VERAPAMIL SR 120 MG TABLET PO SCH (12:11)
[2016-07-05] MEDS: LR 1,000 ML IV SCH (12:12)
--- NOTE | 2016-07-05 13:39 | PNF ---
DATE 07/05/2016 FINDINGS Mrs. Lee this morning states overall she is doing well. She states that she is still having some breakthrough pain requiring intravenous narcotics. Patient states that when she is "lying there, she does not tend to be in much pain." However, ambulation or movement does increase her pain per her report. Exam VITAL SIGNS: Afebrile, normotensive. ABDOMEN: Soft. There was minimal drainage coming forth from the infraumbilical incision that has now stopped. Her incisions are clean, dry and intact. Palpation of the abdomen does not elicit any severe pain. LABORATORY/RADIOGRAPHIC EVALUATION The patient's blood sugars have been stable since surgery. ASSESSMENT 61-year-old female status post robotic-assisted laparoscopic repair of multiple incarcerated incisional hernia/cholecystectomy, history for hypertension, not optimally controlled with medical therapy. PLAN Given the fact that she is still requiring some intravenous narcotics, I do feel that probably we should go ahead and continue with her current hospitalization. This will also allow further time from a medical standpoint to optimize her medical management for her hypertension. I do believe the patient is progressing as expected. Hopefully tomorrow the patient will be able to be discharged to home. RENU
[2016-07-06] VITALS: BP 158/58; PULSE 68; RESP 18; TEMP 98.3; O2SAT 91
[2016-07-06 00:01] VITALS: PULSE 60; RESP 16
[2016-07-06] MEDS: HYDROCODONE/APAP 5 mg/325 mg TABLET PO PRN ×2 (02:13→09:47)
[2016-07-06 04:00] VITALS: BP 157/83; PULSE 62; RESP 18; TEMP 99.8; O2SAT 94
--- NOTE | 2016-07-06 04:38 | NUR ---
Chart Check 24 hour chart check completed
[2016-07-06 04:54] LABS: HCT - HEMATOCRIT 38.8 % (36-46); HGB - HEMOGLOBIN 12.6 GM/DL (12-16); MEAN CORPUSCULAR HGB 28.6 UUG (26-34); MEAN CORPUSCULAR HGB CONC(MCHC 32.5 GM/DL (31-37); MEAN PLATELET VOLUME 11.2 UM3 (9.4-12.4); RED BLOOD COUNT 4.41 M/MM3 (4.00-5.20); WBC - WHITE BLOOD COUNT 12.8 T/MM3 (4.5-11.0)
[2016-07-06 05:05] LABS: ANION GAP 8 MEQ/L (5-15); BUN/CREATININE RATIO 20 RATIO (6-26); CALCIUM 8.4 MG/DL (8.4-10.2); CHLORIDE 104 MEQ/L (98-107); CO2 - CARBON DIOXIDE 29 MEQ/L (22-30); CREATININE 0.8 MG/DL (0.7-1.2); GLOMERULAR FILTRATION RATE 73; GLUCOSE 129 MG/DL (65-110); MAGNESIUM 2.2 MG/DL (1.6-2.3); POTASSIUM 3.6 MEQ/L (3.6-5); SODIUM 141 MEQ/L (134-144)
[2016-07-06] MEDS: LEVOTHYROXINE 75 MCG TABLET PO SCH (05:36)
--- NOTE | 2016-07-06 06:24 | NUR ---
STATUS PATIENT ALERT AND ORIENTEDX3. PATIENT C/O PAIN AT ABD LAP SITES. PRN NORCO WAS ADMINISTRATED. PATIENT AMBULATED BARR ONE TIME WITH STANDBY ASSISTING WELDER MACHINE OPERATOR. PATIENT TOLERATED WELL. PATIENT AMBULATED TO BATHROOM AND HAD ADEQUATE URINARY OUTPUT. NO BM DURING NIGHT. ON ROOM AIR .DENIES CHEST PAIN,SOA,OR N/V.TEMP 99.8 THIS THIS MORNING. ENCOURAGED PATIENT TO USE IS AND ACAPELLA. DRESSING CDI. BINDER USED AT ABD AREA. CALL LIGHT WITHIN REACH .BED ALARM ON .CONTINUE TO MONITOR.
[2016-07-06 06:25] LABS: BASOPHILS # (MANUAL) 0.1 T/MM3 (0-0.2); EOSINOPHILS # (MANUAL) 0.9 T/MM3 (0-0.5); LYMPHOCYTES # (MANUAL) 3.1 T/MM3 (1-4.8); MONOCYTES # (MANUAL) 0.8 T/MM3 (0-0.8); NEUTROPHILS #(MANUAL)-ABSOLUTE 7.9 T/MM3 (1.8-7.7); TOTAL CELLS COUNTED 100 %
[2016-07-06 06:26] LABS: ACANTHOCYTES 1+; ANISOCYTOSIS 1+; BURR CELLS 1+; POIKILOCYTOSIS 1+
[2016-07-06 06:27] LABS: TARGET CELLS 1+
[2016-07-06 07:29] VITALS: BP 159/77; PULSE 67; RESP 18; TEMP 98.4; O2SAT 92
[2016-07-06 07:52] VITALS: PULSE 67; RESP 18
[2016-07-06] MEDS ORDERED: BISACODYL 5 MG E.C. TABLET PO ONE (08:15)
[2016-07-06] MEDS ORDERED: IBUPROFEN 600 MG TABLET PO PRN (08:15)
--- NOTE | 2016-07-06 08:23 | PNSURG ---
Subjective DATE: 07/06/16 TIME: 08:10 Interval History she is eating regular diet, ambulating without assist, voiding. She states the abd binder is helpful with pain. She states she has "stocked up" on TV dinners for the microwave. We talked about using Ibuprofen 1st for pain, and if that is not sufficient, than add [place] only if really needed. Discussed activity, may shower tomorrow and dressings over the flo are at her discretion. If tape causes a rash, she may choose not to cover them. She will follow up with Dr. Roth regarding BP and with us in about 2 weeks for routine post op follow up. Objective Vital Signs Date Time Temp Pulse Resp B/P Pulse Ox O2 Delivery O2 Flow Rate FiO2 07/06/16 07:52 67 18 07/06/16 07:29 98.4 159/77 92 Room Air 07/05/16 22:00 1.00 Height (Feet): 5 Height (Inches): 2.00 Weight (Kilograms): 94.900 BMI 37.2 Laboratory Laboratory Tests 07/04/16 04:34 07/06/16 04:22 Laboratory Tests 07/04/16 04:34 07/06/16 04:22 Procedure Procedure Date: Jul 03, 2016 Surgeon: Mike Fajardo Robotic assisted laparoscopic cholecystectomy with FireFly imaging and primary repair of incisional hernia and umbilical hernia GS Assessment & Plan Problems: (1) Incisional hernia Status: Resolved Qualifiers: Obstruction and gangrene presence: without obstruction or gangrene Qualified Codes: K43.2 - Incisional hernia without obstruction or gangrene (2) Symptomatic cholelithiasis Status: Resolved (3) HTN (hypertension) Status: Chronic Qualifiers: Hypertension type: essential hypertension Qualified Codes: I10 - Essential (primary) hypertension (4) Diabetes mellitus type 2 in obese Status: Chronic Assessment 07-06-2016 she is eating regular diet, ambulating without assist, voiding. She states the abd binder is helpful with pain. She states she has "stocked up" on TV dinners for the microwave. We talked about using Ibuprofen 1st for pain, and if that is not sufficient, than add [place] only if really needed. Discussed activity, may shower tomorrow and dressings over the flo are at her discretion. If tape causes a rash, she may choose not to cover them. BP has been stable with SBP 150 '2-180's, was > 200 on admission. She will follow up with Dr. Roth regarding BP and with us in about 2 weeks for routine post op follow up. DVT Prophylaxis: SCD'S, Lovenox Code Status Full Code, unverified Hospital Course Summary Disclaimer 07-03-2016 Mrs. Lee is a 61-year-old female who recently presented my office as a result of history of abdominal pain along her prior midline incision as well as within her right upper quadrant. She was found have cholelithiasis upon ultrasonography. It was felt the patient was indeed suffering from symptomatic cholelithiasis. It was therefore recommended she undergo cholecystectomy as well as repair of several incisional hernias that were noted upon her upon prior CT scan. Patient presents today to undergo these procedures. See operative note for details. Placed in CCU post operatively for medical management of hypertension, SBP > 200 upon admission preoperatively. 07-04 Will go ahead and transfer out to the floor. Her blood pressure remains slightly elevated. Will defer any type of medication changes to control her hypertension to the hospitalist system. Will go ahead and DC her [place]. Will go ahead and make as an inpatient today. I do believe she is going to require additional IV narcotics for control of her ventral herniorrhaphy discomfort. Patient hopefully will be able to be discharged tomorrow morning. 07-05 Given the fact that she is still requiring some intravenous narcotics, I do feel that probably we should go ahead and continue with her current hospitalization. This will also allow further time from a medical standpoint to optimize her medical management for her hypertension. I do believe the patient is progressing as expected. Hopefully tomorrow the patient will be able to be discharged to home. 07-06-2016 she is eating regular diet, ambulating without assist, voiding. She states the abd binder is helpful with pain. She states she has "stocked up" on TV dinners for the [employer]. We talked about using Ibuprofen 1st for pain, and if that is not sufficient, than add [place] only if really needed. Discussed activity, may shower tomorrow and dressings over the flo are at her discretion. If tape causes a rash, she may choose not to cover them. BP has been stable with SBP 150 '2-180's, was > 200 on admission. She will follow up with Dr. Roth regarding BP and with us in about 2 weeks for routine post op follow up. SHIRLEY VEGA APRN July 06, 2016 08:13
[2016-07-06] MEDS ORDERED: HYDR-4246 PO (08:28)
[2016-07-06] MEDS ORDERED: POLY17PO6 PO (08:29)
[2016-07-06] MEDS: NEBIVOLOL 5 MG TABLET PO SCH (08:35)
[2016-07-06] MEDS: ENOXAPARIN 40 MG/0.4 ML INJECTION SQ SCH (08:35)
--- NOTE | 2016-07-06 08:41 | NUR ---
CM CM IN TO VISIT WITH PT. SHE IS ALERT AND ORIENTED. SHE IS AWARE THAT DC IS PLANNED FOR TODAY. SHE DENIES DC NEEDS. SHE FEELS THAT SHE AND WILL BE ABLE TO MANAGE AT HOME. UPDATED LACE SCORE IS 7. SHE IS GIVEN CM CONTACT INFORMATION AND ENCOURAGED TO CONTACT CM IF DC NEEDS [facility]. SHE VERBALIZED UNDERSTANDING. Addendum: 07/06/16 at 0842 by OSEI CONTRERAS RN Amended: Links added.
[2016-07-06] MEDS ORDERED: POLYETHYL.GLYCOL 3350 PACKET 17gm PO SCH (09:00)
[2016-07-06] MEDS: VERAPAMIL SR 120 MG TABLET PO SCH (11:27)
[2016-07-06 11:29] VITALS: BP 138/77; PULSE 59; RESP 18; TEMP 98.7; O2SAT 92
--- NOTE | 2016-07-06 11:50 | PNF ---
DATE 07/06/2016 FINDINGS Keshia today was in good spirits. She is still experiencing some incisional discomfort at times. especially when she "coughs." VITALS: Afebrile. Normotensive. Please refer to EMR. ABDOMEN: Soft. Minimal incisional tenderness. No evidence for guarding or rebound. ASSESSMENT 61-year-old female status post laparoscopic repair of multiple incarcerated incisional hernias and cholecystectomy. Patient currently doing well. PLAN Discharge to home. Please refer to discharge notes for details, if needed. RENU
--- NOTE | 2016-07-06 14:41 | NUR ---
Discharge Pt discharged at this time via wheelchair through the ER entrance in the company of an adult. IV catheter DC'd prior to discharge, catheter tip intact. Pt A&O x3. Prescription for [place] was given to Pt to take to preferred pharmacy. Discharge packet and instructions were gone over with Pt. This RN discussed medications, activity, diet, restrictions, and follow up appts with Pt. Pt verbalized understanding.
== END 2016-07-06 14:41 | disposition home or self-care (01) | DRG 418 ==
LOC: SCU 12:53 → CCU 18:35 → SCU 07-04 11:48 → CCU 07-04 11:48 → SRG 07-04 15:30
PROVIDERS: ADMIT Surgery; ATTEND Surgery
PROC: 0FT44ZZ Resection of Gallbladder, Percutaneous Endoscopic Approach (ICD-10-PCS; principal; 2016-07-02)
PROC: 0DN84ZZ Release Small Intestine, Percutaneous Endoscopic Approach (ICD-10-PCS; 2016-07-02)
PROC: 0DNS4ZZ (ICD-10-PCS; 2016-07-02)
PROC: 0WQF4ZZ Repair Abdominal Wall, Percutaneous Endoscopic Approach (ICD-10-PCS; 2016-07-02)
PROC: 8E0W4CZ Robotic Assisted Procedure of Trunk Region, Percutaneous Endoscopic Approach (ICD-10-PCS; 2016-07-02)
DX: K80.20 Calculus of gallbladder without cholecystitis without obstruction (principal); K43.0 Incisional hernia with obstruction, without gangrene; K66.0 Peritoneal adhesions (postprocedural) (postinfection); I10 Essential (primary) hypertension; E11.9 Type 2 diabetes mellitus without complications; E78.5 Hyperlipidemia, unspecified; E03.9 Hypothyroidism, unspecified; M19.91 Primary osteoarthritis, unspecified site
CPT/HCPCS: 36415; 80048; 80053; 82948; 83735; 85007; 85025; 85027; 94667; 94668